=== PATIENT | male | born 1970 | race Caucasian/White ===

== ENCOUNTER 2017-07-27 23:52 | Inpatient (IN) | payer BC, OTHER ==
[~2017-07-27] VITALS: Ht 170.2 cm; Wt 190.6 kg
[~2017-07-27 23:52] MED LIST: CARI350T PO; HYDR-963 PO; PRED20TA PO
[2017-07-27] MEDS ORDERED: IV NORMAL SALINE 1,000ML 1,000 ML IV SCH (23:59)
--- NOTE | 2017-07-27 23:59 | ED.ADGEN ---
Past History Past Medical History: Hypertension, Pancreatitis Past Surgical History: Cholecystectomy, Other Alcohol Use: None Drug Use: None Adult General Chief Complaint Chief Complaint ".. I got some pain...".. " here in the Lt. flank and abdomen.. It started about 11... 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 pain. Pt. had a normal stool yesterday. Last ate today at approximately 1600 hrs. Pain has been constant since about 11 AM today. Acute onset. Pain has gotten much more severe tonight. Pain appears to be localized to left flank and radiates to left groin. History of dysuria, penile discharge, colitis, Crohn's, problems with defecation, pancreatitis, or past history of kidney stones. No family history kidney stones or colitis. No recent history of trauma or falls. Patient normally follows with Dr. Harrell. No recent travel. 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 Patient had previous lap band surgery and cholecystectomy. Review of Systems Review of Systems Constitutional: Denies fever or chills [] Eyes: Denies change in visual acuity, redness, or eye pain [] HENT: Denies nasal congestion or sore throat [] Respiratory: Denies cough or shortness of breath [] Cardiovascular: No additional information not addressed in HPI [] GI: History of abdominal pain, nausea, . Denies vomiting, bloody stools or diarrhea [] : Denies dysuria or hematuria [] Musculoskeletal: Left flank back pain. Integument: Denies rash or skin lesions [] Neurologic: Denies headache, focal weakness or sensory changes [] Endocrine: Denies polyuria or polydipsia [] All other systems were reviewed and found to be within normal limits, except as documented in this note. Family History Family History Noncontributory Current Medications Current Medications Current Medications Medications (Trade) Dose Ordered Sig/Sheldon Start Time Stop Time Status Last Admin Dose Admin Famotidine (Pepcid Vial) 20 mg 1X ONCE 07/28/17 00:00 07/28/17 00:32 DC 07/28/17 00:09 20 MG Info (Do NOT chart on this entry -- for MONITORING) 1 each PRN DAILY PRN 07/28/17 01:45 07/30/17 01:44 Iohexol (Omnipaque 240 Mg/ml) 50 ml 1X ONCE 07/28/17 01:45 07/28/17 01:46 DC 07/28/17 01:30 50 ML Iohexol (Omnipaque 300 Mg/ml) 75 ml 1X ONCE 07/28/17 01:45 07/28/17 01:46 DC 07/28/17 01:45 75 ML Ketorolac Tromethamine (Toradol) 30 mg 1X ONCE 07/28/17 00:00 07/28/17 00:32 DC 07/28/17 00:09 30 MG Lactated Ringer's 3,640 ml @ 3,640 mls/hr 1X ONCE 07/28/17 01:45 07/28/17 02:44 DC Morphine Sulfate (Morphine 4mg Syringe) 4 mg PRN QID PRN 07/28/17 01:45 Ondansetron HCl (Zofran) 4 mg QIDPRN PRN 07/28/17 01:45 07/28/17 02:09 4 MG Sodium Chloride 1,000 ml @ 1,000 mls/hr Q1H 07/27/17 23:59 07/28/17 00:58 DC 07/28/17 00:13 1,000 MLS/HR See nursing for home meds Allergies Allergies Allergies Coded Allergies Type Severity Reaction Last Updated Verified No Known Drug Allergies 07/28/17 No Physical Exam Physical Exam Constitutional: in acute distress, non-toxic appearance. [] HENT: Normocephalic, atraumatic, bilateral external ears normal, oropharynx moist, no oral exudates, nose normal. [] Eyes: PERRLA, EOMI, conjunctiva normal, no discharge. Glasses Neck: Normal range of motion, no tenderness, supple, no stridor. [] Cardiovascular:Heart rate regular rhythm, no murmur [] Lungs & Thorax: Bilateral breath sounds clear to auscultation [] Abdomen: Bowel sounds decreased , soft, no tenderness, no masses, no pulsatile masses. Left flank pain. Old surgery scars. Obese Skin: Warm, dry, no erythema, no rash. [] Back: No tenderness, no CVA tenderness. [] Extremities: No tenderness, no cyanosis, no clubbing, ROM intact, no edema. [] Neurologic: Alert and oriented X 3, normal motor function, normal sensory function, no focal deficits noted. [] Psychologic: Affect normal, judgement normal, mood normal. [] Current Patient Data Vital Signs Vital Signs Date Time Temp Pulse Resp B/P (MAP) Pulse Ox O2 Delivery O2 Flow Rate FiO2 07/28/17 01:20 98.2 76 163/68 (99) 96 Room Air 07/28/17 00:00 22 Lab Results Laboratory Tests Test 07/28/17 00:03 07/28/17 00:45 White Blood Count 13.5 x10^3/uL (4.0-11.0) H Red Blood Count 5.57 x10^6/uL (4.30-5.70) Hemoglobin 14.7 g/dL (13.0-17.5) Hematocrit 44.1 % (39.0-53.0) Mean Corpuscular Volume 79 fL (79-100) Mean Corpuscular Hemoglobin 27 pg (25-35) Mean Corpuscular Hemoglobin Concent 33 g/dL (31-37) Red Cell Distribution Width 13.9 % (11.5-14.5) Platelet Count 250 x10^3/uL (140-400) Neutrophils (%) (Auto) 75 % (31-73) H Lymphocytes (%) (Auto) 17 % (24-48) L Monocytes (%) (Auto) 7 % (0-9) Eosinophils (%) (Auto) 1 % (0-3) Basophils (%) (Auto) 1 % (0-3) Neutrophils # (Auto) 10.1 x10^3uL (1.8-7.7) H Lymphocytes # (Auto) 2.2 x10^3/uL (1.0-4.8) Monocytes # (Auto) 0.9 x10^3/uL (0.0-1.1) Eosinophils # (Auto) 0.2 x10^3/uL (0.0-0.7) Basophils # (Auto) 0.1 x10^3/uL (0.0-0.2) Prothrombin Time 10.2 SEC (9.4-11.4) Prothrombin Time INR 1.0 (0.9-1.1) PTT 24 SEC (23-33) Sodium Level 140 mmol/L (136-145) Potassium Level 4.0 mmol/L (3.5-5.1) Chloride Level 104 mmol/L (98-107) Carbon Dioxide Level 28 mmol/L (21-32) Anion Gap 8 (6-14) Blood Urea Nitrogen 11 mg/dL (8-26) Creatinine 1.0 mg/dL (0.7-1.3) Estimated GFR (Cockcroft-Gault) 80.1 Glucose Level 173 mg/dL (70-99) H Lactic Acid Level 1.6 mmol/L (0.4-2.0) Calcium Level 9.0 mg/dL (8.5-10.1) Total Bilirubin 0.3 mg/dL (0.2-1.0) Direct Bilirubin 0.1 mg/dL (0.0-0.2) Aspartate Amino Transferase (AST) 18 U/L (15-37) Alanine Aminotransferase (ALT) 28 U/L (16-63) Alkaline Phosphatase 86 U/L (46-116) Total Protein 8.1 g/dL (6.4-8.2) Albumin 3.7 g/dL (3.4-5.0) Amylase Level 363 U/L (25-115) H Lipase 3496 U/L (73-393) H Urine Collection Type Unknown Urine Color Yellow Urine Clarity Clear Urine pH 5.0 Urine Specific [place] >=1.030 Urine Protein Neg (NEG-TRACE) Urine Glucose (UA) Neg mg/dL (NEG) Urine Ketones (Stick) Neg mg/dL (NEG) Urine Blood Neg (NEG) Urine Nitrite Neg (NEG) Urine Bilirubin Neg (NEG) Urine Urobilinogen Dipstick 0.2 mg/dL (0.2 mg/dL) Urine Leukocyte Esterase Neg (NEG) Urine RBC 0 /HPF (0-2) Urine WBC Occ /HPF (0-4) Urine Squamous Epithelial Cells Few /LPF Urine Bacteria 0 /HPF (0-FEW) EKG EKG [] Radiology/Procedures Radiology/Procedures CT = umbilicus fat hernia, Findings of pancreatitis tail. No free fluid or air. No hydronephrosis. See formal report when available. Course & Med Decision Making Course & Med Decision Making Pertinent Labs and Imaging studies reviewed. (See chart for details). Currently no stable transfers- by Ambulance due to weather and road conditions. Discussed presentation, testing and tx. plan with Dr. Curiel. Will admit for further eval and tx. [] Final Impression Final Impression 1. Elevated Lipase & Amylase 2. Abdomen pain[] 3. Elevated amylase 4. Leukocytosis 5. Pancreatitis 6. DM 7. Hypertension Problems: Dragon Disclaimer Dragon Disclaimer This electronic medical record was generated, in whole or in part, using a voice recognition dictation system. CRYSTAL HYDE MD Jul 27, 2017 23:59
[2017-07-28] MEDS ORDERED: FAMOTIDINE 20 MG/2 ML VIAL IVP ONE
[2017-07-28] MEDS ORDERED: MORPHINE SULFATE 4 MG/ML DISP.SYRIN. IV ONE
[2017-07-28] MEDS ORDERED: KETOROLAC 30 MG/ML VIAL. IV ONE
[2017-07-28 00:22] LABS: BASO # 0.1 x10^3/uL (0.0-0.2); BASO % 1 % (0-3); EOS # 0.2 x10^3/uL (0.0-0.7); EOS % 1 % (0-3); HEMATOCRIT 44.1 % (39.0-53.0); HEMOGLOBIN 14.7 g/dL (13.0-17.5); LYMPH # 2.2 x10^3/uL (1.0-4.8); LYMPH % 17 % (24-48); MEAN CORPUSCULAR HEMOGLOBIN 27 pg (25-35); MEAN CORPUSCULAR HGB CONC 33 g/dL (31-37); MEAN CORPUSCULAR VOLUME 79 fL (79-100); MONO # 0.9 x10^3/uL (0.0-1.1); MONO % 7 % (0-9); NEUT # 10.1 x10^3uL (1.8-7.7); NEUT % 75 % (31-73); PLATELET COUNT 250 x10^3/uL (140-400); RED BLOOD COUNT 5.57 x10^6/uL (4.30-5.70); RED CELL DISTRIBUTION WIDTH 13.9 % (11.5-14.5); WHITE BLOOD COUNT 13.5 x10^3/uL (4.0-11.0)
[2017-07-28 00:32] LABS: ALBUMIN 3.7 g/dL (3.4-5.0); DIRECT BILIRUBIN 0.1 mg/dL (0.0-0.2); GFR 80.1; TOTAL BILIRUBIN 0.3 mg/dL (0.2-1.0); TOTAL PROTEIN 8.1 g/dL (6.4-8.2)
[2017-07-28] MEDS: MORPHINE SULFATE 4 MG/ML DISP.SYRIN. IV PRN ×7 (00:40→14:28)
--- NOTE | 2017-07-28 00:46 | RAD ---
EXAM: CT ABDOMEN/PELVIS WITHOUT CONTRAST. HISTORY: Left flank pain. TECHNIQUE: Computed tomography of the abdomen and pelvis was performed without intravenous contrast. COMPARISON: April 05, 2016. FINDINGS: Lung windows through the visualized portions of the bases reveal mild atelectasis. Bone windows reveal no suspicious lesions. There are inflammatory changes about the tail of the pancreas with a small amount of fluid in the left anterior pararenal space. This is consistent with acute pancreatitis. There is no drainable collection or clear underlying mass by noncontrast CT. A gastric band prosthesis is in expected position. The liver is at least mildly enlarged. Mild diffuse hepatic steatosis is suspected. The gallbladder is surgically absent. The adrenal glands are unremarkable. The spleen is not enlarged. The kidneys are unremarkable without contrast. There are no renal or ureteral calculi. Sigmoid diverticulosis is mild. The appendix is not inflamed. There is no obstruction or ileus. A small to moderate umbilical hernia contains only fat. IMPRESSION: 1. Findings consistent with moderate appearing acute pancreatitis along the tail. No drainable collection. 2. No nephroureterolithiasis. 3. Suspect mild diffuse hepatic steatosis. At least mild hepatomegaly. 4. Small to moderate fat-containing umbilical hernia. *One or more of the following individualized dose reduction techniques were utilized for this examination: 1. Automated exposure control. 2. Adjustment of the mA and/or kV according to patient size. 3. Use of iterative reconstruction technique. Electronically signed by: Iain Walker MD (07/28/2017 12:43 AM) [id number]
[2017-07-28 01:04] LABS: BACTERIA,URINE 0 /HPF (0-FEW); BILIRUBIN,URINE NEG (NEG); CLARITY,URINE CLEAR; COLOR,URINE YELLOW; GLUCOSE,URINE NEG (NEG); NITRITE,URINE NEG (NEG); RBC,URINE 0 /HPF (0-2); SQUAMOUS EPITHELIAL CELL,UR FEW /LPF; UROBILINOGEN,URINE 0.2 mg/dL (0.2 mg/dL); WBC,URINE OCC /HPF (0-4)
[2017-07-28] MEDS ORDERED: IOHEXOL 240 MG/ML 50ML VIAL. ONE (01:26)
[2017-07-28] MEDS ORDERED: IOHEXOL 300 MG/ML 75 ML VIAL. IV ONE (01:45)
[2017-07-28] MEDS ORDERED: ONDANSETRON PF 4 MG/2 ML VIAL. IV PRN (01:45)
[2017-07-28] MEDS ORDERED: CONTRAST GIVEN MC PRN (01:45)
[2017-07-28] MEDS ORDERED: MORPHINE SULFATE 4 MG/ML DISP.SYRIN. IV PRN (01:45)
[2017-07-28] MEDS ORDERED: RINGERS LACTATED IV ONE (01:45)
[2017-07-28] MEDS ORDERED: IOHEXOL 240 MG/ML 50ML VIAL. PO ONE (01:45)
[2017-07-28] MEDS ORDERED: ONDANSETRON PF 4 MG/2 ML VIAL. IV ONE ×2 (01:45)
--- NOTE | 2017-07-28 02:10 | RAD ---
EXAM: CT ABDOMEN/PELVIS WITH CONTRAST. HISTORY: Pancreatitis versus pancreatic mass. TECHNIQUE: Computed tomography of the abdomen and pelvis was performed after the intravenous administration of 75 mL Omnipaque 300. COMPARISON: Today's noncontrast study. FINDINGS: Lung windows through the visualized portions of the bases reveal mild atelectasis. Bone windows reveal no suspicious lesions. The pancreatic tail is enlarged but no discrete mass is appreciable on this can be seen in the setting of pancreatitis. There is surrounding inflammatory change with a small amount of fluid in the anterior pararenal space. There is no drainable collection. The splenic vein appears to remain patent. No aneurysm is appreciated. The pancreatic parenchyma demonstrates no clear regions of necrosis. Hypoattenuation of the hepatic parenchyma is consistent with diffuse hepatic steatosis. The liver is at least mildly enlarged. The gallbladder is surgically absent. There is a small cyst at the right renal lower pole. The adrenal glands and spleen are unremarkable. There are no pathologically enlarged lymph nodes. Sigmoid diverticulosis is mild. There is no obstruction. The appendix is not inflamed. A gastric band prosthesis is in expected position. A small to moderate umbilical hernia contains only fat. IMPRESSION: 1. Enlargement of the pancreatic tail can be seen in the setting of pancreatitis. No discrete mass is seen. A follow-up or MRCP with and without contrast after resolution of the acute process could further exclude a mass if there is persistent concern. 2. Hepatomegaly. Suspect mild diffuse hepatic steatosis. 3. Small to moderate fat-containing umbilical hernia. *One or more of the following individualized dose reduction techniques were utilized for this examination: 1. Automated exposure control. 2. Adjustment of the mA and/or kV according to patient size. 3. Use of iterative reconstruction technique. Electronically signed by: Iain Walker MD (07/28/2017 2:06 AM) [id number]
[2017-07-28] MEDS ORDERED: LISI1TAB5 PO (02:38)
[2017-07-28 02:56] VITALS: BP 133/75
[2017-07-28 05:31] VITALS: BP 129/83
[2017-07-28] MEDS: IV RINGERS SOLUTION,LACTATED 1,000 ML IV SCH ×3 (06:39→19:36)
[2017-07-28] MEDS: FAMOTIDINE 20 MG/2 ML VIAL IVP SCH ×2 (08:31→20:35)
[2017-07-28] MEDS: MAGNESIUM HYDROXIDE 2,400 MG/30 ML ORAL.SUSP. PO SCH (08:34)
[2017-07-28 09:36] VITALS: BP 141/71
[2017-07-28 14:17] VITALS: BP 141/79
[2017-07-28] MEDS ORDERED: PIPERACILLIN/TAZOBACTAM 3.375 GM in IV NORMAL SALINE 50ML 50 ML IV SCH (15:15)
[2017-07-28] MEDS ORDERED: ACETAMINOPHEN 650 MG SUPP.RECT. PR PRN (16:15)
[2017-07-28] MEDS: PIPERACILLIN/TAZO IV Push 3.375 GM VIAL. IVP SCH ×2 (16:57→22:48)
[2017-07-28 19:52] VITALS: BP 137/79
[2017-07-28] MEDS: HYDROmorphone PF 2 MG/ML VIAL IV PRN (20:35)
[2017-07-28 22:35] VITALS: BP 137/90
[2017-07-29] MEDS: HYDROmorphone PF 2 MG/ML VIAL IV PRN ×3 (03:17→18:43)
[2017-07-29 06:14] VITALS: BP 127/83
[2017-07-29] MEDS: PIPERACILLIN/TAZO IV Push 3.375 GM VIAL. IVP SCH ×3 (06:32→22:33)
[2017-07-29 07:02] LABS: HEMATOCRIT 40.5 % (39.0-53.0); HEMOGLOBIN 13.3 g/dL (13.0-17.5); RED BLOOD COUNT 5.03 x10^6/uL (4.30-5.70)
[2017-07-29 07:14] LABS: ALBUMIN/GLOBULIN RATIO 0.7 (1.0-1.7); CALCIUM 8.4 mg/dL (8.5-10.1); GFR 80.1; POTASSIUM 4.3 mmol/L (3.5-5.1); TOTAL BILIRUBIN 1.1 mg/dL (0.2-1.0); TOTAL PROTEIN 7.2 g/dL (6.4-8.2)
[2017-07-29] MEDS: FAMOTIDINE 20 MG/2 ML VIAL IVP SCH ×2 (08:23→20:56)
[2017-07-29] MEDS: MAGNESIUM HYDROXIDE 2,400 MG/30 ML ORAL.SUSP. PO SCH (09:00)
[2017-07-29] MEDS: IV RINGERS SOLUTION,LACTATED 1,000 ML IV SCH ×2 (10:59→20:57)
[2017-07-29 11:32] VITALS: BP 138/75
[2017-07-29 16:00] VITALS: BP 140/83
[2017-07-29 19:10] VITALS: BP 149/73
[2017-07-29] MEDS: LACTOBACILLUS RHAMNOSUS GG 1 CAPSULE. PO SCH (20:54)
[2017-07-30] MEDS: HYDROmorphone PF 2 MG/ML VIAL IV PRN ×5 (00:33→21:16)
[2017-07-30] MEDS: IV RINGERS SOLUTION,LACTATED 1,000 ML IV SCH (04:12)
[2017-07-30] MEDS: PIPERACILLIN/TAZO IV Push 3.375 GM VIAL. IVP SCH ×2 (06:00→16:16)
[2017-07-30 07:03] LABS: CALCIUM 8.7 mg/dL (8.5-10.1); CREATININE 0.9 mg/dL (0.7-1.3); GFR 90.4; POTASSIUM 3.9 mmol/L (3.5-5.1)
[2017-07-30 07:05] VITALS: BP 134/83
[2017-07-30] MEDS: FAMOTIDINE 20 MG/2 ML VIAL IVP SCH ×2 (08:27→21:16)
[2017-07-30] MEDS: MAGNESIUM HYDROXIDE 2,400 MG/30 ML ORAL.SUSP. PO SCH (08:30)
[2017-07-30] MEDS: LACTOBACILLUS RHAMNOSUS GG 1 CAPSULE. PO SCH ×2 (08:30→21:16)
[2017-07-30 10:34] VITALS: BP 146/88
--- NOTE | 2017-07-30 13:47 | RAD ---
Acute abdomen series with chest, 07/28/2017: History: Abdominal pain This study is just now being presented for review on a delayed basis. A gastric banding type device is present. Surgical clips are evident in the right upper quadrant. The abdominal gas pattern is unremarkable. No free air seen in the abdomen. There is no evidence of organomegaly. The heart size and pulmonary vascularity are normal. The lungs are clear. There is no evidence of pleural fluid. There are mild scattered spurs in the spine. IMPRESSION: 1. A gastric banding type device is in place. 2. No acute abdominal abnormality is detected.
[2017-07-30 14:40] VITALS: BP 158/80
--- NOTE | 2017-07-30 16:01 | RAD ---
CTA chest and CT abdomen and pelvis with contrast 07/30/2017 Clinical indication: Shortness of air and elevated d-dimer. Comparison: CT abdomen and pelvis with contrast 07/28/2017, without contrast CT abdomen and pelvis 07/28/2017, 04/05/2016, CT chest 07/20/2010. Technique: Multiple CTA images chest, abdomen and pelvis were obtained following the intravenous administration of 75 mL Omnipaque 300. MIPS were obtained of the chest. PQRS Compliance Statement: One or more of the following individualized dose reduction techniques were utilized for this examination: 1. Automated exposure control 2. Adjustment of the mA and/or kV according to patient size 3. Use of iterative reconstruction technique CTA chest: There is suboptimal opacification of the major segmental and subsegmental pulmonary arteries. No main or central pulmonary arterial filling defect. Heart size is normal without significant pericardial effusion. The thoracic aorta is normal in caliber. No axillary, mediastinal or obvious hilar lymphadenopathy. The central airways are patent. There is mild subsegmental atelectasis in the right lower lobe. There is trace left pleural effusion and subjacent atelectasis. No pneumothorax. Abdomen and pelvis: Examination is significant delay limited due to contrast timing and body habitus. There is diffuse hepatic steatosis. Spleen, adrenal glands are grossly unremarkable. Prior cholecystectomy. There is a laparoscopic Coptic gastric banding device in similar position. There is no significant change in peripancreatic stranding and edema most prominent adjacent to the pancreatic tail. There is focal enlargement as seen on series 5/image 36. There is thickening of the left anterior pararenal fascia, likely reactive from the pancreatic inflammation. No discrete loculated peripancreatic fluid collection. Note that patency of the splenic vein and splenic artery arteries cannot be identified on the limited exam. Abdominal aorta is normal in caliber. Small and large bowel loops are normal in caliber without obstruction. No pneumoperitoneum. Visualized portions of the urinary bladder, prostate and seminal vesicles are grossly unremarkable. There is a small fat-containing umbilical hernia. Impression: CTA chest: 1. Nondiagnostic examination of the major segmental and subsegmental pulmonary arterial branches, due to body habitus and contrast timing. 2. No main pulmonary arterial filling defect. 3. Development of a small left pleural effusion and bilateral lower lobe subsegmental atelectasis. Abdomen and pelvis: 1. No significant change in peripancreatic stranding and edema which may represent acute interstitial edematous pancreatitis. 2. Stable focal enlargement of the pancreatic tail. Consideration for MRCP without with contrast after resolution of acute process to exclude underlying pancreatic mass. 3. No discrete peripancreatic loculated fluid collection. 4. Hepatic steatosis.
[2017-07-30] MEDS: VANCOMYCIN PER PHARMACY MC PRN (17:04)
[2017-07-30] MEDS: FLUCONAZOLE 100MG/50ML PREMIX 50 ML IV SCH (17:27)
[2017-07-30] MEDS ORDERED: VANCOMYCIN 2 GM in IV NORMAL SALINE 500ML 500 ML IV ONE (18:00)
[2017-07-30 19:34] VITALS: BP 164/75
[2017-07-30] MEDS: MEROPENEM IV Push 1 GM VIAL. IVP SCH (21:17)
--- NOTE | 2017-07-30 21:36 | RAD ---
Exam: AP portable chest History: PICC line placement. Comparison: None. Findings: The heart and mediastinal structures are within normal limits for size. Lungs are without infiltrate. No pleural effusion or pneumothorax is identified. There is a right-sided PICC line with tip thought to project at the superior vena cava. Impression: 1. No acute cardiopulmonary process. 2. Right-sided PICC line tip projects at the superior vena cava. Electronically signed by: Lenny Escobedo MD (07/30/2017 9:33 PM) [facility]
[2017-07-30] MEDS ORDERED: MEROPENEM 1 GM in IV NORMAL SALINE 100ML 100 ML IV SCH (22:00)
[2017-07-30 23:07] VITALS: BP 165/86
[2017-07-31] MEDS: HYDROmorphone PF 2 MG/ML VIAL IV PRN ×4 (02:49→21:11)
--- NOTE | 2017-07-31 04:54 | PN ---
DATE: 07/30/2017 SUBJECTIVE: The patient is a 46-year-old male patient who was admitted with pancreatitis. He continued to complain of abdominal pain, particularly when he stands or walks, but he is pain free when he is sitting or lying in his bed. He did spike temperature again last night up to 102 Fahrenheit and in fact his white cell count went up from 13.5-22,000 despite being on Zosyn. His D-dimer was high and that was done because of shortness of breath and did a CT scan of the chest, abdomen and pelvis. The CT angio of the chest showed that there is suboptimal opacification of the major segmental and subsegmental pulmonary arteries, no main or central pulmonary artery filling defect. The heart size is normal without significant pericardial effusion. The thoracic aorta is normal in caliber. No axillary, mediastinal or obvious hilar lymphadenopathy. The central airways are patent. There is mild subsegmental atelectasis in the right lower lobe, there is left pleural effusion with subjacent atelectasis, no pneumothorax. CT scan of the abdomen showed that he has no significant change, peripancreatic stranding or edema, which may represent acute interstitial edematous pancreatitis. He has stable focal enlargement of the pancreatic tail, consideration for MRCP without contrast after resolution of acute process to exclude underlying pancreatic mass. There is no discrete peripancreatic loculated fluid collection. I did speak with Dr. Starr who recommended to discontinue Zosyn and start him on meropenem, vancomycin, fluconazole and to reculture him again. We will start him also on a clear liquid diet. PHYSICAL EXAMINATION: GENERAL: When I examined him this afternoon, he was sitting comfortably and he is on the edge of the bed, in no apparent respiratory distress, slightly pale, but no jaundice, cyanosis or thyromegaly. No jugular venous distension. No limb edema. VITAL SIGNS: His heart rate was 107, blood pressure 158/80, temperature was 98.9, respiratory rate was 20 and oxygen saturation was 93%. He is on 3 liters of oxygen. HEAD, EYES, EARS, NOSE AND THROAT: Showed normocephalic, atraumatic. NECK: Supple. HEART: Showed normal first and second heart sounds with no gallop, rub or murmur. CHEST: Clear to auscultation. No crepitation or rhonchi. ABDOMEN: Distended, soft, nontender. NEUROLOGIC: He is awake, alert, responding appropriately. Cranial nerves intact. He moves extremities without difficulty. His intake over the last 24 hours was 2818, no output was recorded. LABORATORY DATA: This morning showed a white cell count of 22,000, hemoglobin 13, hematocrit 40, MCV 81 and platelet count 231,000. His serum sodium was 141, potassium 3.9, chloride 105, bicarbonate 29, anion gap of 7, BUN 14, creatinine 0.9, estimated GFR was 90 mL per minute. His glucose 146, calcium was 8.7 and his D-dimer was 3.77. Urinalysis was unremarkable. His urine and blood cultures were all negative. ASSESSMENT: Acute pancreatitis, resolving. He has history of hypertension, morbid obesity, obstructive sleep apnea, febrile illness with leukocytosis. PLAN: We will re-culture him. We will start him on a clear liquid diet as tolerated. I will switch him to meropenem, vancomycin and fluconazole and discontinue Zosyn. We will repeat all his lab works tomorrow and decide the further management accordingly. LEXX VU MD DR: TEE/jamaica JOB#: [id number] / [id number]
[2017-07-31 04:59] VITALS: BP 163/81
[2017-07-31] MEDS: MEROPENEM IV Push 1 GM VIAL. IVP SCH ×3 (05:01→21:12)
[2017-07-31] MEDS: VANCOMYCIN 2 GM in IV NORMAL SALINE 500ML 500 ML IV SCH ×2 (05:02→18:20)
[2017-07-31 05:27] LABS: BASO # 0.1 x10^3/uL (0.0-0.2); BASO % 1 % (0-3); EOS # 0.1 x10^3/uL (0.0-0.7); EOS % 0 % (0-3); HEMATOCRIT 37.7 % (39.0-53.0); HEMOGLOBIN 12.3 g/dL (13.0-17.5); LYMPH # 1.5 x10^3/uL (1.0-4.8); LYMPH % 8 % (24-48); MEAN CORPUSCULAR HEMOGLOBIN 26 pg (25-35); MEAN CORPUSCULAR HGB CONC 33 g/dL (31-37); MEAN CORPUSCULAR VOLUME 80 fL (79-100); MONO # 1.6 x10^3/uL (0.0-1.1); MONO % 8 % (0-9); NEUT # 16.2 x10^3uL (1.8-7.7); NEUT % 83 % (31-73); PLATELET COUNT 211 x10^3/uL (140-400); RED CELL DISTRIBUTION WIDTH 13.7 % (11.5-14.5); WHITE BLOOD COUNT 19.4 x10^3/uL (4.0-11.0)
[2017-07-31 05:43] LABS: % BANDS 5 % (0-9); % LYMPHS 3 % (24-48); % MONOS 4 % (0-10); % SEGS 88 % (35-66); PLT ESTIMATE ADEQUATE (ADEQUATE)
[2017-07-31 05:44] LABS: ALBUMIN 2.4 g/dL (3.4-5.0); ALBUMIN/GLOBULIN RATIO 0.6 (1.0-1.7); CALCIUM 8.5 mg/dL (8.5-10.1); CREATININE 0.8 mg/dL (0.7-1.3); GFR 103.6; POTASSIUM 3.5 mmol/L (3.5-5.1); TOTAL BILIRUBIN 0.8 mg/dL (0.2-1.0); TOTAL PROTEIN 6.7 g/dL (6.4-8.2)
[2017-07-31] MEDS: MAGNESIUM HYDROXIDE 2,400 MG/30 ML ORAL.SUSP. PO SCH (09:21)
[2017-07-31] MEDS: LACTOBACILLUS RHAMNOSUS GG 1 CAPSULE. PO SCH ×2 (09:21→21:11)
[2017-07-31] MEDS: FAMOTIDINE 20 MG/2 ML VIAL IVP SCH ×2 (09:22→21:11)
[2017-07-31 10:56] VITALS: BP 163/84
[2017-07-31 14:54] VITALS: BP 162/82
[2017-07-31] MEDS: IV RINGERS SOLUTION,LACTATED 1,000 ML IV SCH (16:52)
[2017-07-31] MEDS: FLUCONAZOLE 100MG/50ML PREMIX 50 ML IV SCH (17:14)
[2017-07-31 19:23] VITALS: BP 167/78
[2017-07-31 23:22] VITALS: BP 175/77
--- NOTE | 2017-08-01 00:57 | PN ---
DATE: SUBJECTIVE: The patient is resting, slightly propped up in bed, in no apparent respiratory distress. He is awake, alert. On questioning him, he denied any abdominal pain while lying or sitting. He does have some discomfort when he walks, but much less than before. Denied any nausea, vomiting, no diarrhea or constipation. Denied any chills, rigors or fever. He is tolerating his liquid diet without any problem. OBJECTIVE: GENERAL: When I examined him, he looked well and was clearly in no apparent respiratory distress, pale, no jaundice, cyanosis, or thyromegaly. No jugular venous distension. No limb edema. VITAL SIGNS: Her heart rate was 105, blood pressure was 162/82, temperature was 98.4, respiratory rate was 20, and oxygen saturation was 96% on room air. HEAD, EYES, EARS, NOSE AND THROAT: Showed normocephalic, atraumatic. NECK: Supple. HEART: Showed normal first and second heart sounds. No gallop, rub or murmur. CHEST: Clear to auscultation. No crepitation or rhonchi. ABDOMEN: Distended, soft, and nontender. No guarding or rigidity. No organomegaly. Hernial orifice intact. Bowel sounds normal. NEUROLOGIC: He was awake, alert, responding appropriately. Cranial nerves intact. He moves extremities without difficulty. He ambulates without assistance or assistive devices. His intake over the last 24 hours was 2900, no output was recorded. LABORATORY DATA: As of this morning, his white cell count is slightly down to 19,400, hemoglobin was 12, hematocrit 37, MCV 80, and platelet count 211,000. His chemistry showed a serum sodium 135, potassium 3.5, chloride 101, bicarbonate 30, anion gap of 4, BUN 12, creatinine 0.8, estimated GFR was 103 mL per minute, his glucose 124, and calcium was 8.5. Total bilirubin, AST, ALT, alkaline phosphatase were normal. Total protein was 6.7, albumin 2.4. His serum lipase is down to 167. ASSESSMENT: 1. Acute pancreatitis, resolving. 2. Leukocytosis with fever for which, we did burgess culture him. So far, all his cultures are negative. He continues to be on meropenem, vancomycin, and fluconazole. He today is afebrile, hemodynamically stable. His white cell count is trending down. 3. Hypertension. 4. Morbid obesity. 5. Obstructive sleep apnea. PLAN: My plan is to continue with the current plan of management. If blood cultures remain negative tomorrow, we will discontinue the vancomycin and will be able to discharge him on oral antibiotic and fluconazole. LEXX VU MD DR: TEE/jamaica JOB#: [id number] / [id number]
[2017-08-01] MEDS: IV RINGERS SOLUTION,LACTATED 1,000 ML IV SCH ×3 (02:45→21:03)
[2017-08-01] MEDS: HYDROmorphone PF 2 MG/ML VIAL IV PRN ×4 (03:30→23:55)
[2017-08-01] MEDS: MEROPENEM IV Push 1 GM VIAL. IVP SCH ×3 (05:23→21:03)
[2017-08-01 05:25] LABS: BASO # 0.1 x10^3/uL (0.0-0.2); BASO % 1 % (0-3); EOS # 0.2 x10^3/uL (0.0-0.7); EOS % 1 % (0-3); HEMATOCRIT 37.4 % (39.0-53.0); HEMOGLOBIN 12.3 g/dL (13.0-17.5); LYMPH # 1.6 x10^3/uL (1.0-4.8); LYMPH % 9 % (24-48); MEAN CORPUSCULAR HEMOGLOBIN 26 pg (25-35); MEAN CORPUSCULAR HGB CONC 33 g/dL (31-37); MEAN CORPUSCULAR VOLUME 80 fL (79-100); MONO # 1.3 x10^3/uL (0.0-1.1); MONO % 8 % (0-9); NEUT # 14.1 x10^3uL (1.8-7.7); NEUT % 82 % (31-73); PLATELET COUNT 210 x10^3/uL (140-400); RED CELL DISTRIBUTION WIDTH 13.7 % (11.5-14.5); WHITE BLOOD COUNT 17.4 x10^3/uL (4.0-11.0)
[2017-08-01 05:31] LABS: CALCIUM 8.3 mg/dL (8.5-10.1); CREATININE 0.8 mg/dL (0.7-1.3); GFR 103.6; POTASSIUM 3.3 mmol/L (3.5-5.1)
[2017-08-01 05:32] VITALS: BP 142/87
[2017-08-01 05:36] LABS: VANC TR 7.7 mcg/mL (10.0-20.0)
[2017-08-01] MEDS: VANCOMYCIN 2 GM in IV NORMAL SALINE 500ML 500 ML IV SCH ×3 (05:45→21:03)
[2017-08-01] MEDS: LACTOBACILLUS RHAMNOSUS GG 1 CAPSULE. PO SCH ×2 (07:43→21:03)
[2017-08-01] MEDS: FAMOTIDINE 20 MG/2 ML VIAL IVP SCH ×2 (07:44→21:02)
[2017-08-01] MEDS: VANCOMYCIN PER PHARMACY MC PRN (08:31)
[2017-08-01] MEDS: MAGNESIUM HYDROXIDE 2,400 MG/30 ML ORAL.SUSP. PO SCH (08:36)
[2017-08-01 14:37] VITALS: BP 180/80
[2017-08-01] MEDS: FLUCONAZOLE 100MG/50ML PREMIX 50 ML IV SCH (18:40)
[2017-08-01 19:07] VITALS: BP 162/82
[2017-08-02] MEDS: VANCOMYCIN 2 GM in IV NORMAL SALINE 500ML 500 ML IV SCH (04:56)
[2017-08-02] MEDS: MEROPENEM IV Push 1 GM VIAL. IVP SCH (04:56)
[2017-08-02 05:41] VITALS: BP 160/90
[2017-08-02 06:31] LABS: HEMATOCRIT 37.9 % (39.0-53.0); HEMOGLOBIN 12.3 g/dL (13.0-17.5); RED BLOOD COUNT 4.7 x10^6/uL (4.30-5.70); RED CELL DISTRIBUTION WIDTH 13.7 % (11.5-14.5); WHITE BLOOD COUNT 16.5 x10^3/uL (4.0-11.0)
[2017-08-02 06:32] LABS: ALBUMIN 2.2 g/dL (3.4-5.0); ALBUMIN/GLOBULIN RATIO 0.5 (1.0-1.7); CALCIUM 8.2 mg/dL (8.5-10.1); CREATININE 0.7 mg/dL (0.7-1.3); GFR 120.9; POTASSIUM 3.2 mmol/L (3.5-5.1); TOTAL BILIRUBIN 0.8 mg/dL (0.2-1.0); TOTAL PROTEIN 6.3 g/dL (6.4-8.2)
[2017-08-02] MEDS: HYDROmorphone PF 2 MG/ML VIAL IV PRN (06:42)
[2017-08-02 06:48] VITALS: BP 177/90
--- NOTE | 2017-08-02 15:45 | PN ---
DATE: 08/01/2017 SUBJECTIVE: The patient is a 46-year-old male patient who was admitted with abdominal pain and was diagnosed with acute pancreatitis. He also spiked his temperature and developed leukocytosis for which we pancultured him. We will start him on meropenem, vancomycin, fluconazole, and I discontinued his Zosyn as per Dr. Starr's advice. His serum lipase has steadily improved from 3496 down to 213 and we did start him on a clear liquid diet and since then, the patient stated that his pain returned back mostly in the left upper quadrant and through and through to the back. He has been afebrile. His white cell count was trending down, although it is still high and therefore, we will continue with current plan of management on IV fluid, IV antibiotic, pain medication and antiemetic and per his request, we will transfer him tomorrow to [facility] to consult the screen printing stencil preparer as well as the Infectious Disease and perhaps the surgical team if deemed necessity. PHYSICAL EXAMINATION: GENERAL: When I saw him this afternoon, he looked well and was clearly in no apparent respiratory distress, pale, but no jaundice, cyanosis or thyromegaly. No jugular venous distension. No limb edema. VITAL SIGNS: His heart rate was 88, blood pressure was 180/80, temperature was 98.8, respiratory rate was 20, and oxygen saturation was 96% on 2 liters of oxygen. HEAD, EYES, EARS, NOSE AND THROAT: Showed normocephalic, atraumatic. NECK: Supple. HEART: Showed normal first and second heart sounds with no gallop, rub or murmur. CHEST: Clear to auscultation. No crepitation or rhonchi. ABDOMEN: Distended, soft with tenderness mostly in the left upper quadrant. No guarding or rigidity. No organomegaly. Hernial orifices intact. Bowel sounds normal. NEUROLOGIC: He is awake, alert, responding appropriately. All cranial nerves intact. EXTREMITIES: He moves extremities without difficulty. He ambulates without assistance or assistive devices. His intake over the last 24 hours was 3900, no output was recorded. LABORATORY DATA: As of this morning showed a white cell count 17,400, hemoglobin 12, hematocrit 37, MCV 80 and platelet count of 210,000. His serum sodium was 143, potassium 3.3, chloride 105, bicarbonate 30, anion gap of 8, BUN 10, creatinine 0.8, estimated GFR was 104 mL per minute. Glucose 126, calcium was 8.3. Serum lipase this morning was 213. PLAN: To continue with IV antibiotic. Continue with pain management and DVT prophylaxis in the form of SCDs and GI prophylaxis. I will repeat all his lab work tomorrow. We will transfer him once a bed becomes available to [facility] to consult the Gastroenterology team, Surgical team as well as Infectious Disease team. LEXX VU MD DR: TEE/jamaica JOB#: [id number] / [id number]
== END 2017-08-02 07:31 | disposition short-term general hospital (02) | DRG 439 ==
LOC: ER 23:52 → 1 SOUTH 07-28 01:45
PROVIDERS: ADMIT Family Medicine; ATTEND Family Medicine
DX: K85.90 Acute pancreatitis without necrosis or infection, unspecified (principal); K50.90 Crohn's disease, unspecified, without complications; E66.01 Morbid (severe) obesity due to excess calories; Z68.44 Body mass index [BMI] 60.0-69.9, adult; E11.9 Type 2 diabetes mellitus without complications; G47.33 Obstructive sleep apnea (adult) (pediatric); I10 Essential (primary) hypertension; Z87.442 Personal history of urinary calculi; Z98.84 Bariatric surgery status; Z90.49 Acquired absence of other specified parts of digestive tract; R94.8 Abnormal results of function studies of other organs and systems
CPT/HCPCS: 36415; 36569; 71045; 71275; 74022; 74176; 74177; 80048; 80053; 80061; 80076; 80202; 81001; 82150; 82947; 83605; 83690; 85007; 85025; 85027; 85379; 85610; 85730; 87040; 87086; 87186; 96361; 96374; 96375; 96376; J1170; J1450; J1885; J2185; J2270; J2405; J2543; J3370; J7040; J7120; Q9966; Q9967; S0028; 99285-25; J7030

== ENCOUNTER 2017-11-29 12:53 | Emergency (ER) | payer BC, OTHER ==
[~2017-11-29] VITALS: Ht 170.2 cm; Wt 191.4 kg
[~2017-11-29 12:53] MED LIST changes: +LISI1TAB5 PO
[2017-11-29 13:12] VITALS: BP 209/128
[2017-11-29] MEDS ORDERED: cefTRIAXone IV Push 1 GM VIAL. IVP ONE (13:30)
[2017-11-29] MEDS ORDERED: KETOROLAC 30 MG/ML VIAL. IV ONE (13:30)
[2017-11-29] MEDS ORDERED: METOCLOPRAMIDE HCL 10 MG/2 ML VIAL. IV ONE (13:30)
[2017-11-29] MEDS ORDERED: diphenhydrAMINE 50 MG/ML VIAL IVP ONE (13:30)
[2017-11-29] MEDS ORDERED: MORPHINE SULFATE 10 MG/ML SYRINGE. ONE (13:44)
[2017-11-29] MEDS ORDERED: MORPHINE SULFATE 10 MG/ML SYRINGE. SQ ONE (13:45)
[2017-11-29] MEDS ORDERED: HYDR-971 PO (14:44)
[2017-11-29] MEDS ORDERED: PENI500T PO (14:44)
--- NOTE | 2017-11-29 14:49 | PHYS DOC ---
Past History Past Medical History: Hypertension, Migraines, Pancreatitis Past Surgical History: Cholecystectomy, Other Smoking: Non-smoker Alcohol Use: None Drug Use: None Adult General Chief Complaint Chief Complaint: HEADACHE HPI HPI 47-year-old male patient with history of migraine headache complaining of sudden onset of frontal headache as a constant throbbing pain with nausea and photophobia started about 1.5 hour ago. Patient states the pain was more severe his usual pain and he took sublingual Zofran. Patient states he had right lower jaw and dental abscess a take his headache. Patient denies fever and chills, neck rigidity, focal neuro deficit, chest pain and shortness of breath. The patient has history of hypertension and states he was not able to take his blood pressure medication of pain and nausea. Review of Systems Review of Systems Constitutional: Denies fever or chills [] Eyes: Denies change in visual acuity, redness, or eye pain [] HENT: Denies nasal congestion or sore throat [] Respiratory: Denies cough or shortness of breath [] Cardiovascular: No additional information not addressed in HPI [] GI: Reports nausea, denies abdominal pain, vomiting, bloody stools or diarrhea [] : Denies dysuria or hematuria [] Musculoskeletal: Denies back pain or joint pain [] Integument: Denies rash or skin lesions [] Neurologic: Reports headache, denies focal weakness or sensory changes [] Endocrine: Denies polyuria or polydipsia [] All other systems were reviewed and found to be within normal limits, except as documented in this note. Current Medications Current Medications Current Medications Medications (Trade) Dose Ordered Sig/Sheldon Start Time Stop Time Status Last Admin Dose Admin Ceftriaxone Sodium 1 gm/ Sodium Chloride 50 ml @ 100 mls/hr 1X ONCE 11/29/17 13:15 11/29/17 13:28 DC Ceftriaxone Sodium (Rocephin) 1 gm 1X ONCE 11/29/17 13:30 11/29/17 13:31 DC Diphenhydramine HCl (Benadryl) 50 mg 1X ONCE 11/29/17 13:30 11/29/17 13:31 DC Ketorolac Tromethamine (Toradol) 30 mg 1X ONCE 11/29/17 13:30 11/29/17 13:31 DC Metoclopramide HCl (Reglan Vial) 10 mg 1X ONCE 11/29/17 13:30 11/29/17 13:31 DC Morphine Sulfate (Morphine 10mg Syringe) 10 mg 1X ONCE 11/29/17 13:45 11/29/17 13:46 UNV 11/29/17 13:45 10 MG Allergies Allergies Allergies Coded Allergies Type Severity Reaction Last Updated Verified No Known Drug Allergies 07/28/17 No Physical Exam Physical Exam Constitutional: Well developed, well nourished, moderate distress, non-toxic appearance, morbidly obese, BMI 66. [] HENT: Normocephalic, atraumatic, bilateral external ears normal, oropharynx moist, no oral exudates, nose normal right lower molar #1 abscess and tenderness. [] Eyes: PERRLA, EOMI, conjunctiva normal, no discharge. [] Neck: Normal range of motion, no tenderness, supple, no stridor. [] Cardiovascular:Heart rate regular rhythm, no murmur [] Lungs & Thorax: Bilateral breath sounds clear to auscultation [] Abdomen: Bowel sounds normal, soft, no tenderness, no masses, no pulsatile masses. [] Skin: Warm, dry, no erythema, no rash. [] Back: No tenderness, no CVA tenderness. [] Extremities: No tenderness, no cyanosis, no clubbing, ROM intact, no edema. [] Neurologic: Alert and oriented X 3, normal motor function, normal sensory function, no focal deficits noted. [] Psychologic: Affect normal, judgement normal, mood normal. [] Current Patient Data Vital Signs Vital Signs Date Time Temp Pulse Resp B/P (MAP) Pulse Ox O2 Delivery O2 Flow Rate FiO2 11/29/17 14:10 66 96 11/29/17 13:45 16 Room Air EKG EKG [] Radiology/Procedures Radiology/Procedures [] Course & Med Decision Making Course & Med Decision Making Evaluation of patient in ER showed 47-year-old male patient with complaining of migraine headache after dental abscess. Patient had dental abscess blood pressure of more than 200 with arrival to ER . Patient had heart IV access and morphine 10 mg subcutaneous was given and placement of his pain and blood pressure. Prescription for Pen-Vee K and was given and patient instructed to take his blood pressure medication and follow up with his dentist. Dragon Disclaimer Dragon Disclaimer This electronic medical record was generated, in whole or in part, using a voice recognition dictation system. Departure Departure: Impression: Primary Impression: Migraine headache Additional Impressions: Dental abscess Hypertensive urgency Morbid obesity Disposition: 01 HOME, SELF-CARE (At 1441) Condition: IMPROVED Referrals: HERNANDEZ JOHNSON MD (PCP) Patient Instructions: Dental Abscess, Migraine Headache Additional Instructions: Drink plenty of liquids Follow-up with your primary care physician in 3-5 days Return to ER if not getting better Follow up with your dentist in 5-7 days Scripts Hydrocodone Bit/Acetaminophen (NORCO 5-325 TABLET) 1 Each Tablet 1 TAB PO PRN Q6HRS PRN for PAIN, #14 TAB 0 Refills Prov: TYESHA BECK MD 11/29/17 Penicillin V Potassium (PENICILLIN V POTASSIUM) 500 Mg Tablet 1 TAB PO QID, #40 TAB Prov: TYESHA BECK MD 11/29/17 Problem Qualifiers TYESHA BECK MD November 29, 2017 14:49
== END 2017-11-29 14:56 | disposition home or self-care (01) ==
LOC: ER 12:53
DX: G43.909 Migraine, unspecified, not intractable, without status migrainosus (principal); K04.7 Periapical abscess without sinus; I10 Essential (primary) hypertension; E66.01 Morbid (severe) obesity due to excess calories; Z68.44 Body mass index [BMI] 60.0-69.9, adult
CPT/HCPCS: 96372; 99283; J2270

== ENCOUNTER 2019-02-12 13:34 | Emergency (ER) | payer BC, OTHER ==
[~2019-02-12] VITALS: Ht 170.2 cm; Wt 193.2 kg
[~2019-02-12 13:34] MED LIST changes: +HYDR-3136 PO; +HYDR-3165 PO; -HYDR-963 PO; +PENI500T PO
[2019-02-12 13:46] VITALS: BP 150/100
[2019-02-12] MEDS ORDERED: MECL25TA3 PO (14:01)
--- NOTE | 2019-02-12 14:01 | PHYS DOC ---
Past History Past Medical History: Hypertension, Migraines, Pancreatitis Past Surgical History: Cholecystectomy, Other Smoking: Non-smoker Alcohol Use: None Drug Use: None Adult General Chief Complaint Chief Complaint: DIZZY/LIGHT HEADED [facility] HPI Patient is a 48-year-old male who presents with sudden onset of acute dizziness. He states he was sitting at his desk looking at the computer lifted his head up and felt like the room was spinning. He got up turned around and symptoms got worse to the point he had to sit down. He denies a headache or lateralizing neurologic weakness. He states he felt a little nauseous with the dizziness. He also states that in the last 24 hours he's developed a dry cough that he states is come out of nowhere. He states he's felt warm but hasn't been running a fever. He states he is not coughing anything up.[] Review of Systems Review of Systems Constitutional: Denies fever or chills [] Eyes: Denies change in visual acuity, redness, or eye pain [] HENT: Denies nasal congestion or sore throat [] Respiratory: Reports dry cough[] Cardiovascular: No additional information not addressed in HPI [] GI: Some nausea[] : Denies dysuria or hematuria [] Musculoskeletal: Denies back pain or joint pain [] Integument: Denies rash or skin lesions [] Neurologic: Reports dizziness[] Endocrine: Denies polyuria or polydipsia [] All other systems were reviewed and found to be within normal limits, except as documented in this note. Allergies Allergies Allergies Coded Allergies Type Severity Reaction Last Updated Verified No Known Drug Allergies 07/28/17 No Physical Exam Physical Exam Constitutional: Well developed, well nourished, no acute distress, non-toxic appearance. [] HENT: Normocephalic, atraumatic, bilateral external ears normal, oropharynx moist, no oral exudates, nose normal. [] Eyes: PERRLA, EOMI, conjunctiva normal, no discharge. [] Neck: Normal range of motion, no tenderness, supple, no stridor. [] Cardiovascular:Heart rate regular rhythm, no murmur [] Lungs & Thorax: Bilateral breath sounds clear to auscultation [] Abdomen: Bowel sounds normal, soft, no tenderness, no masses, no pulsatile masses. [] Skin: Warm, dry, no erythema, no rash. [] Back: No tenderness, no CVA tenderness. [] Extremities: No tenderness, no cyanosis, no clubbing, ROM intact, no edema. [] Neurologic: Alert and oriented X 3, normal motor function, normal sensory function, no focal deficits noted. [] Psychologic: Affect normal, judgement normal, mood normal. [] Current Patient Data Vital Signs Vital Signs Date Time Temp Pulse Resp B/P (MAP) Pulse Ox O2 Delivery O2 Flow Rate FiO2 02/12/19 13:46 98.0 86 18 97 Room Air EKG EKG [] Radiology/Procedures Radiology/Procedures [] Course & Med Decision Making Course & Med Decision Making Pertinent Labs and Imaging studies reviewed. (See chart for details) [] Dragon Disclaimer Dragon Disclaimer This electronic medical record was generated, in whole or in part, using a voice recognition dictation system. Departure Departure: Impression: Primary Impression: Vertigo Additional Impression: Cough Disposition: 01 HOME, SELF-CARE Condition: STABLE Referrals: HERNANDEZ JOHNSON MD (PCP) Patient Instructions: Benign Positional Vertigo, Cough, Adult, Upper Respiratory Infection, Adult, Vertigo Additional Instructions: Take medication as directed. Return to the emergency department with any new or concerning symptoms Scripts Meclizine Hcl (MECLIZINE HCL) 25 Mg Tablet 1 TAB PO PRN TID for vertigo, #30 TAB Prov: JOSÉ MANUEL MCDONALD DO 02/12/19 Problem Qualifiers JOSÉ MANUEL MCDONALD DO Feb 12, 2019 14:01
[2019-02-12] MEDS ORDERED: MECLIZINE 12.5 MG TABLET. PO ONE (14:15)
[2019-02-12] MEDS ORDERED: diazePAM 5 MG TABLET PO ONE (14:15)
[2019-02-12] MEDS ORDERED: ONDANSETRON ODT 4 MG TAB.RAPDIS ONE (14:15)
== END 2019-02-12 14:24 | disposition home or self-care (01) ==
LOC: ER 13:34
DX: R42 Dizziness and giddiness (principal); R53.1 Weakness; R05 Cough; I10 Essential (primary) hypertension; G43.909 Migraine, unspecified, not intractable, without status migrainosus
CPT/HCPCS: 99283; J8597

== ENCOUNTER 2019-06-17 18:30 | Emergency (ER) | payer BC, OTHER ==
[~2019-06-17 18:30] MED LIST changes: +LISI1TAB19 PO; -LISI1TAB5 PO; +MECL-75 PO
[2019-06-17] MEDS ORDERED: IV NORMAL SALINE 1,000ML 1,000 ML IV SCH (18:53)
--- NOTE | 2019-06-17 18:56 | PHYS DOC ---
Past History Past Medical History: Hypertension, Migraines, Pancreatitis Past Surgical History: Cholecystectomy, Other Additional Past Surgical Histo: lap band Smoking: Non-smoker Alcohol Use: None Drug Use: None Adult General Chief Complaint Chief Complaint: COUGH HPI HPI Patient is a 48-year-old male who presents to the emergency department for evaluation. He states he has had a cough productive of some yellow sputum for the past 2-3 days, and He states he became acutely short of breath about 20 minutes prior to arrival, in the setting of some coughing fits. He reports some mild right-sided chest discomfort, worse with coughing only. He denies any dizziness or lightheadedness, has not had any fevers or chills. He has not had any nausea, vomiting. He denies any left or anterior chest discomfort. There are no alleviating or exacerbating factors to his symptoms except that coughing worsens his discomfort. Review of Systems Review of Systems Constitutional: Denies fever or chills [] Eyes: Denies change in visual acuity, redness, or eye pain [] HENT: Denies otalgia or sore throat [] Respiratory: No additional information not addressed in HPI [] Cardiovascular: No additional information not addressed in HPI [] GI: Denies abdominal pain, nausea, vomiting, bloody stools or diarrhea [] : Denies dysuria or hematuria [] Musculoskeletal: Denies back pain or joint pain [] Integument: Denies rash or skin lesions [] Neurologic: Denies headache, focal weakness or sensory changes [] Endocrine: Denies polyuria or polydipsia [] All other systems were reviewed and found to be within normal limits, except as documented in this note. Allergies Allergies Allergies Coded Allergies Type Severity Reaction Last Updated Verified No Known Drug Allergies 06/17/19 No Physical Exam Physical Exam PHYSICAL EXAM: CONSTITUTIONAL: Well developed, well nourished HEAD: normocephalic, atraumatic EENT: PERRL, EOMI. Conjunctivae normal color, sclerae non-icteric; moist mucous membranes. NECK: Supple, non-tender; no meningismus. LUNGS: Lungs CTA, breathing even and unlabored. Normal air movement. In termittent paroxysms of coughing are present. HEART: Regular rate and rhythm, no murmur CHEST: No deformity; there is tenderness to palpation to the right anterior/lateral chest wall, which reproduces the patient's pain. ABDOMEN: The abdomen is soft, and non-tender, no masses or bruits. EXTREM: Normal ROM; no deformity, no calf tenderness. Normal pulses palpable in all extremities. There does appear to be chronic appearing lymphedema bilaterally lower extremities. SKIN: No rash; no diaphoresis NEURO: Alert; normal speech and cognition; CN's grossly intact; strength grossly intact without focal deficit. BACK: No CVA TTP. Current Patient Data Vital Signs Vital Signs Date Time Temp Pulse Resp B/P (MAP) Pulse Ox O2 Delivery O2 Flow Rate FiO2 06/17/19 18:47 98.3 93 17 97 Lab Results Laboratory Tests Test 06/17/19 19:15 06/17/19 19:20 White Blood Count 10.4 x10^3/uL Red Blood Count 5.39 x10^6/uL Hemoglobin 14.5 g/dL Hematocrit 43.3 % Mean Corpuscular Volume 80 fL Mean Corpuscular Hemoglobin 27 pg Mean Corpuscular Hemoglobin Concent 34 g/dL Red Cell Distribution Width 13.7 % Platelet Count 254 x10^3/uL Neutrophils (%) (Auto) 63 % Lymphocytes (%) (Auto) 27 % Monocytes (%) (Auto) 6 % Eosinophils (%) (Auto) 3 % Basophils (%) (Auto) 1 % Neutrophils # (Auto) 6.5 x10^3uL Lymphocytes # (Auto) 2.8 x10^3/uL Monocytes # (Auto) 0.7 x10^3/uL Eosinophils # (Auto) 0.3 x10^3/uL Basophils # (Auto) 0.1 x10^3/uL D-Dimer (Regine) 0.40 mg/L Sodium Level 141 mmol/L Potassium Level 3.7 mmol/L Chloride Level 105 mmol/L Carbon Dioxide Level 26 mmol/L Anion Gap 10 Blood Urea Nitrogen 9 mg/dL Creatinine 1.1 mg/dL Estimated GFR (Cockcroft-Gault) 71.1 BUN/Creatinine Ratio 8 Glucose Level 165 mg/dL Calcium Level 8.7 mg/dL Total Bilirubin 0.4 mg/dL Aspartate Amino Transf (AST/SGOT) 22 U/L Alanine Aminotransferase (ALT/SGPT) 35 U/L Alkaline Phosphatase 103 U/L Troponin I Quantitative < 0.017 ng/mL OO-Onr-P-Type Natriuretic Peptide 41 pg/mL Total Protein 8.1 g/dL Albumin 3.5 g/dL Albumin/Globulin Ratio 0.8 Influenza Type A (Rapid) Negative Influenza Type B (Rapid) Negative Current Medications Medications (Trade) Dose Ordered Sig/Sheldon Route PRN Reason Start Time Stop Time Status Last Admin Dose Admin Sodium Chloride 1,000 ml @ 1,000 mls/hr Q1H IV 06/17/19 18:53 06/17/19 19:52 DC 06/17/19 19:30 Benzonatate (Tessalon Perle) 200 mg 1X ONCE PO 06/17/19 19:00 06/17/19 19:10 DC 06/17/19 19:29 EKG EKG [] Radiology/Procedures Radiology/Procedures PROCEDURE: CHEST PA & LATERAL CHEST PA LATERAL History: Cough. Shortness of breath Comparison: July 30, 2017 Findings: No consolidation or pleural effusion. Normal heart size. Impression: 1. No acute cardiopulmonary process. [] Course & Med Decision Making Course & Med Decision Making Pertinent Labs and Imaging studies reviewed. (See chart for details) []8:40 p.m.: The patient's condition remained stable. His symptoms have significantly improved after administration of an antitussive. I suspect her shortness of breath and discomfort were related to paroxysmal coughing. I discussed importance of close PCP follow-up and outpatient evaluation and return precautions were discussed in detail. Dragon Disclaimer Dragon Disclaimer This electronic medical record was generated, in whole or in part, using a voice recognition dictation system. Departure Departure: Impression: Primary Impression: Paroxysmal cough Additional Impression: Upper respiratory infection Disposition: HOME, SELF-CARE Condition: STABLE Referrals: HERNANDEZ JOHNSON MD (PCP) Patient Instructions: Acute Bronchitis, Cough, Adult, Upper Respiratory Infection, Adult Additional Instructions: Return to medical care for any new or worsening symptoms, development of increasing difficulty breathing, chest pain, fever, or any other new or concerning symptoms. Scripts Benzonatate (TESSALON PERLE) 100 Mg Capsule 200 MG PO TID PRN for COUGH, #20 CAP Prov: VEDA CLARK MD 06/17/19 Problem Qualifiers VEDA CLARK MD Jun 17, 2019 18:56
[2019-06-17] MEDS ORDERED: BENZONATATE 100 MG CAPSULE. PO ONE (19:00)
--- NOTE | 2019-06-17 19:22 | RAD ---
CHEST PA LATERAL History: Cough. Shortness of breath Comparison: July 30, 2017 Findings: No consolidation or pleural effusion. Normal heart size. Impression: 1. No acute cardiopulmonary process. Electronically signed by: Micah Gandhi DO (06/17/2019 7:19 PM) [facility]
[2019-06-17 19:46] LABS: BASO # 0.1 x10^3/uL (0.0-0.2); BASO % 1 % (0-3); EOS # 0.3 x10^3/uL (0.0-0.7); EOS % 3 % (0-3); HEMATOCRIT 43.3 % (39.0-53.0); HEMOGLOBIN 14.5 g/dL (13.0-17.5); LYMPH # 2.8 x10^3/uL (1.0-4.8); LYMPH % 27 % (24-48); MEAN CORPUSCULAR HEMOGLOBIN 27 pg (25-35); MEAN CORPUSCULAR HGB CONC 34 g/dL (31-37); MEAN CORPUSCULAR VOLUME 80 fL (79-100); MONO # 0.7 x10^3/uL (0.0-1.1); MONO % 6 % (0-9); NEUT # 6.5 x10^3uL (1.8-7.7); NEUT % 63 % (31-73); PLATELET COUNT 254 x10^3/uL (140-400); RED BLOOD COUNT 5.39 x10^6/uL (4.30-5.70); RED CELL DISTRIBUTION WIDTH 13.7 % (11.5-14.5); WHITE BLOOD COUNT 10.4 x10^3/uL (4.0-11.0)
[2019-06-17 20:06] LABS: ALBUMIN 3.5 g/dL (3.4-5.0); ALBUMIN/GLOBULIN RATIO 0.8 (1.0-1.7); CALCIUM 8.7 mg/dL (8.5-10.1); CREATININE 1.1 mg/dL (0.7-1.3); GFR 71.1; POTASSIUM 3.7 mmol/L (3.5-5.1); TOTAL BILIRUBIN 0.4 mg/dL (0.2-1.0); TOTAL PROTEIN 8.1 g/dL (6.4-8.2)
[2019-06-17 20:07] LABS: INFLUENZA A PATIENT NEGATIVE (NEGATIVE); INFLUENZA B PATIENT NEGATIVE (NEGATIVE)
[2019-06-17] MEDS ORDERED: BENZ100C PO (20:41)
[2019-06-17 20:46] VITALS: BP 163/72
== END 2019-06-17 20:47 | disposition home or self-care (01) ==
LOC: ER 18:30
DX: J06.9 Acute upper respiratory infection, unspecified (principal); I10 Essential (primary) hypertension; G43.909 Migraine, unspecified, not intractable, without status migrainosus
CPT/HCPCS: 36415; 71046; 80053; 83880; 84484; 85025; 85379; 87804; 99285-25; J7030

== ENCOUNTER 2021-01-28 12:31 | Emergency (ER) | payer BC, OTHER ==
[~2021-01-28] VITALS: Ht 170.2 cm; Wt 185.3 kg
[~2021-01-28 12:31] MED LIST changes: +BENZ100C PO; -LISI1TAB19 PO; +LISI1TAB37 PO
[2021-01-28] MEDS ORDERED: ONDANSETRON PF 4 MG/2 ML VIAL. IVP ONE (13:00)
[2021-01-28] MEDS ORDERED: IV NORMAL SALINE 1,000ML 1,000 ML IV ONE (13:00)
--- NOTE | 2021-01-28 13:00 | PHYS DOC ---
Past History Past Medical History: Hypertension, Migraines, Pancreatitis (AMEYA GARRIOD APRN) Past Surgical History: Cholecystectomy, Other Additional Past Surgical Histo: lap band (AMEYA GARRIDO APRN) Smoking: Non-smoker Alcohol Use: None Drug Use: None (AMEYA GARRIDO APRN) General Adult EDM: Chief Complaint: FEVER HPI: HPI: Patient is a 50-year-old male who presents to the ER today multiple complaints. He is reporting fever, chills/sweats, nausea, low O2 sats at home. Symptom onset was today. Patient reports checking his temperature at home and it was 103 degrees, he took 500 mg of Tylenol prior to arrival. Patient also reports that his oxygen saturations at home was 91 to 92%. Patient is tachycardic in the ER today 120, vital signs stable, oxygen saturation 97% on room air. Patient has a history of hypertension and did not take his medications today because of his nausea. He is unsure of what medications he takes at home. Patient denies cough, shortness of air, chest pain, body aches, vomiting, diarrhea, sick exposures, travel, pain. (AMEYA GARRIDO APRN) Review of Systems: Review of Systems: 14 body systems of the review of systems have been reviewed. See HPI for pertinent positive and negative responses, otherwise all other systems are negative, nonpertinent or noncontributory (AMEYA GARRIDO APRN) Allergies: Allergies: Allergies Coded Allergies Type Severity Reaction Last Updated Verified No Known Drug Allergies 06/17/19 No (AMEYA GARRIDO APRN) Physical Exam: PE: Constitutional: Well developed, well nourished, no acute distress, non-toxic appearance. [] HENT: Normocephalic, atraumatic Eyes: PERRL, conjunctiva normal, no discharge. [] Neck: Normal range of motion, no stridor Cardiovascular:Heart rate tachycardic rhythm, no murmur [] Lungs & Thorax: Bilateral breath sounds clear to auscultation, nonlabored, no hypoxia, no accessory muscle use, no tachypnea [] Abdomen: Bowel sounds normal, soft, no tenderness, no masses, no pulsatile masses. [] Skin: Warm, dry, no erythema, no rash. [] Back: No tenderness, normal range of motion. [] Extremities: No tenderness, no cyanosis, no clubbing, ROM intact, no edema. [] Neurologic: Alert and oriented X 3, normal motor function, normal sensory function, no focal deficits noted. [] Psychologic: Affect normal, judgement normal, mood normal. [] (AMEYA GARRIDO APRN) Current Patient Data: Labs: Laboratory Tests Test 01/28/21 13:08 01/28/21 15:09 White Blood Count 14.7 x10^3/uL Red Blood Count 5.24 x10^6/uL Hemoglobin 14.3 g/dL Hematocrit 42.7 % Mean Corpuscular Volume 81 fL Mean Corpuscular Hemoglobin 27 pg Mean Corpuscular Hemoglobin Concent 34 g/dL Red Cell Distribution Width 13.6 % Platelet Count 199 x10^3/uL Neutrophils (%) (Auto) 86 % Lymphocytes (%) (Auto) 6 % Monocytes (%) (Auto) 7 % Eosinophils (%) (Auto) 0 % Basophils (%) (Auto) 1 % Neutrophils # (Auto) 12.6 x10^3uL Lymphocytes # (Auto) 0.9 x10^3/uL Monocytes # (Auto) 1.0 x10^3/uL Eosinophils # (Auto) 0.0 x10^3/uL Basophils # (Auto) 0.1 x10^3/uL Sodium Level 140 mmol/L Potassium Level 4.1 mmol/L Chloride Level 103 mmol/L Carbon Dioxide Level 26 mmol/L Anion Gap 11 Blood Urea Nitrogen 10 mg/dL Creatinine 1.0 mg/dL Estimated GFR (Cockcroft-Gault) 78.8 BUN/Creatinine Ratio 10 Glucose Level 172 mg/dL Calcium Level 8.7 mg/dL Total Bilirubin 0.5 mg/dL Aspartate Amino Transf (AST/SGOT) 20 U/L Alanine Aminotransferase (ALT/SGPT) 27 U/L Alkaline Phosphatase 98 U/L Total Protein 7.3 g/dL Albumin 3.6 g/dL Albumin/Globulin Ratio 1.0 Urine Collection Type Unknown Urine Color Yellow Urine Clarity Clear Urine pH 8.0 Urine Specific [place] 1.020 Urine Protein Neg Urine Glucose (UA) Neg mg/dL Urine Ketones (Stick) Neg mg/dL Urine Blood Trace Urine Nitrite Neg Urine Bilirubin Neg Urine Urobilinogen Dipstick 0.2 mg/dL Urine Leukocyte Esterase Neg Urine RBC 1-2 /HPF Urine WBC 0 /HPF Urine Squamous Epithelial Cells Few /LPF Urine Bacteria 0 /HPF Urine Mucus Slight /LPF Current Medications Medications (Trade) Dose Ordered Sig/Sheldon Route PRN Reason Start Time Stop Time Status Last Admin Dose Admin Sodium Chloride 1,000 ml @ 1,000 mls/hr 1X ONCE IV 01/28/21 13:00 01/28/21 13:59 DC 01/28/21 13:15 Ondansetron HCl (Zofran) 4 mg 1X ONCE IVP 01/28/21 13:00 01/28/21 13:01 DC 01/28/21 13:15 Acetaminophen (Tylenol) 1,000 mg 1X ONCE PO 01/28/21 13:15 01/28/21 13:16 DC 01/28/21 13:15 Ibuprofen (Motrin) 800 mg 1X ONCE PO 01/28/21 15:15 01/28/21 15:16 DC 01/28/21 15:15 Laboratory Tests Test 01/28/21 13:08 White Blood Count 14.7 x10^3/uL Red Blood Count 5.24 x10^6/uL Hemoglobin 14.3 g/dL Hematocrit 42.7 % Mean Corpuscular Volume 81 fL Mean Corpuscular Hemoglobin 27 pg Mean Corpuscular Hemoglobin Concent 34 g/dL Red Cell Distribution Width 13.6 % Platelet Count 199 x10^3/uL Neutrophils (%) (Auto) 86 % Lymphocytes (%) (Auto) 6 % Monocytes (%) (Auto) 7 % Eosinophils (%) (Auto) 0 % Basophils (%) (Auto) 1 % Neutrophils # (Auto) 12.6 x10^3uL Lymphocytes # (Auto) 0.9 x10^3/uL Monocytes # (Auto) 1.0 x10^3/uL Eosinophils # (Auto) 0.0 x10^3/uL Basophils # (Auto) 0.1 x10^3/uL Sodium Level 140 mmol/L Potassium Level 4.1 mmol/L Chloride Level 103 mmol/L Carbon Dioxide Level 26 mmol/L Anion Gap 11 Blood Urea Nitrogen 10 mg/dL Creatinine 1.0 mg/dL Estimated GFR (Cockcroft-Gault) 78.8 BUN/Creatinine Ratio 10 Glucose Level 172 mg/dL Calcium Level 8.7 mg/dL Total Bilirubin 0.5 mg/dL Aspartate Amino Transf (AST/SGOT) 20 U/L Alanine Aminotransferase (ALT/SGPT) 27 U/L Alkaline Phosphatase 98 U/L Total Protein 7.3 g/dL Albumin 3.6 g/dL Albumin/Globulin Ratio 1.0 Current Medications Medications (Trade) Dose Ordered Sig/Sheldon Route PRN Reason Start Time Stop Time Status Last Admin Dose Admin Sodium Chloride 1,000 ml @ 1,000 mls/hr 1X ONCE IV 01/28/21 13:00 01/28/21 13:59 DC 01/28/21 13:15 Ondansetron HCl (Zofran) 4 mg 1X ONCE IVP 01/28/21 13:00 01/28/21 13:01 DC 01/28/21 13:15 Acetaminophen (Tylenol) 1,000 mg 1X ONCE PO 01/28/21 13:15 01/28/21 13:16 DC 01/28/21 13:15 Vital Signs: Vital Signs Date Time Temp Pulse Resp B/P (MAP) Pulse Ox O2 Delivery O2 Flow Rate FiO2 01/28/21 12:48 99.8 120 18 154/104 97 Room Air (AMEYA AGRRIDO APRN) EKG: EKG: [] (AMEYA GARRIDO APRN) Radiology/Procedures: Radiology/Procedures: PROCEDURE: PORTABLE CHEST 1V EXAM: XR CHEST 1V 01/28/2021 12:57 PM CLINICAL INDICATION: Low oxygen saturation at home COMPARISON: Chest radiograph 06/17/2019 TECHNIQUE: AP view of the chest FINDINGS: The heart and mediastinum are normal. Lungs are well-expanded and clear. No consolidation, pleural effusion, or pneumothorax. Pulmonary vascular ity is normal. The thoracic skeleton is intact. IMPRESSION: Normal chest radiograph. Electronically signed by: Selma Taylor MD (01/28/2021 2:23 PM) [id number] DICTATED AND SIGNED BY: SELMA TAYLOR MD DATE: 01/28/21 1423 CC: TOM JOE DO; AMEYA GARRIDO APRN; TROY JONES ~MTH0 0 (AMEYA GARRIDO APRN) Heart Score: C/O Chest Pain: No Risk Factors: Risk Factors: DM, Current or recent (<one month) smoker, HTN, HLP, family history of CAD, obesity. Risk Scores: Score 0 - 3: 2.5% MACE over next 6 weeks - Discharge Home Score 4 - 6: 20.3% MACE over next 6 weeks - Admit for Clinical Observation Score 7 - 10: 72.7% MACE over next 6 weeks - Early Invasive Strategies (AMEYA GARRIDO APRN) Course & Med Decision Making: Course & Med Decision Making Pertinent Labs and Imaging studies reviewed. (See chart for details) Patient is a 50-year-old male being seen in the ER today for fever, chills/sweats, nausea, low O2 saturations at home. Work-up in the ER consisted of CBC, CMP, chest x-ray, Covid test. Findings in the ER mostly unremarkable, patient did have an elevated WBC but chest x-ray negative. His Covid test is pending at this time and he will be notified of results whenever they become available. Patient was educated to self isolate until the results of this test. Patient advised to push fluids and take Tylenol/ibuprofen for pain or fevers. Upon discharge patient was noted to have a temperature of 103 degrees. Patient was treated with ibuprofen. A UA was performed, that was unremarkable. Patient's temperature was rechecked and it was 99.7, heart rate 103. I discussed with patient all findings and diagnostic testing as well as the need to follow-up with PCP for further evaluation and treatment or return to the ER if any new or worsening symptoms. Strict return precautions were also discussed at length. Patient voiced understanding and agreement with the plan. Patient is hemodynamically stable at the time of disposition. (AMEYA GARRIDO APRN) Dragon Disclaimer: Dragon Disclaimer: This electronic medical record was generated, in whole or in part, using a voice recognition dictation system. (AMEYA GARRIDO APRN) Attending Co-Sign The patient was seen and interviewed as well as examined at the bedside. The chart was reviewed. The case was discussed. Agree with the plan of care. (TOM JOE DO) Departure Departure: Impression: Primary Impression: Fever Qualified Codes: R50.9 - Fever, unspecified Disposition: HOME / SELF CARE / HOMELESS Condition: GOOD Referrals: TROY JONES (PCP) Patient Instructions: Fever, Adult Additional Instructions: You were seen for fever and low o2sats at home. Your physical exam was reassuring. Your chest x-ray was normal. We tested you for COVID-19 but this test does not come back for 1 to 2 days. In the meantime you will need to quarantine yourself at home away from all other individuals, especially those who are elderly or have any other chronic health issues or any one with immunocompromise status. You should return to the ER if you develop worsening cough, shortness of breath, chest pain, or any other new or concerning symptoms. Alternate Tylenol and ibuprofen as needed for your body aches and pain. If your test does come back positive we will need to quarantine yourself for 10 days until symptom free. You should make sure to drink plenty of fluids and get plenty of rest. Continue to monitor your oxygen saturations at home. EMERGENCY DEPARTMENT GENERAL DISCHARGE INSTRUCTIONS Thank you for coming to [facility] (ED) today and trusting us with you care. We trust that you had a positivie experience in our Emergency Department. If you wish to speak to the department management, you may call the director at [phone]. YOUR FOLLOW UP INSTRUCTIONS ARE FOLLOWS: 1. Do you have a private Doctor? If you do not have a private doctor, please ask for a resource list of physicians or clinics that may be able to assist you with follow up care. 2. The Emergency Physician has interpreted your x-rays. The X-Ray specialist will also review them. If there is a change in the findings, you will be notified in 48 hours when at all possible. 3. A lab test or culture has been done, your results will be reviewed and you will be notified if you need a change in treatment. ADDITIONAL INSTRUCTIONS AND INFORMATION: 1. Your care today has been supervised by a physician who is specially trained in emergency care. Many problems require more than one evaluation for a complete diagnosis and treatment. We recommend that you schedule your follow up appointment as recommended to ensure complete treatment of you illness or injury. If you are unable to obtain follow up care and continue to have a problem, or if your condition worsens, we recommend that you return to the ED. 2. We are not able to safely determine your condition over the phone nor are we able to give sound medical advice over the phone. For these safety reasons, if you call for medical advice we will ask you to come to the ED for further evaluation. 3. If you have any questions regarding these discharge instructions please call the ED at [phone]. SAFETY INFORMATION: In the interest of safety, wellness, and injury prevention; we encourage you to wear your sealbelt, if you smoke; quite smoking, and we encourage family to use a protective helmet for bicycling and other sporting events that present an increased risk for head injury. IF YOUR SYMPTOMS WORSEN OR NEW SYMPTOMS DEVELOP, OR YOU HAVE CONCERNS ABOUT YOUR CONDITION; OR IF YOUR CONDITION WORSENS WHILE YOU ARE WAITING FOR YOUR FOLLOW UP APPOINTMEN T; EITHER CONTACT YOUR PRIMARY CARE DOCTOR, THE PHYSICIAN WHOSE NAME AND NUMBER YOU WERE GIVEN, OR RETURN TO THE ED IMMEDIATELY. Scripts Ondansetron Hcl (ZOFRAN) 4 Mg Tablet 4 MG PO TID PRN PRN for NAUSEA for 5 Days, #15 TAB 0 Refills Prov: AMEYA GARRIDO APRN 01/28/21 AMEYA GARRIDO APRN Jan 28, 2021 13:00 TOM JOE DO Jan 29, 2021 06:11
[2021-01-28] MEDS ORDERED: ACETAMINOPHEN 500 MG TABLET PO ONE (13:15)
[2021-01-28 13:27] LABS: BASO # 0.1 x10^3/uL (0.0-0.2); BASO % 1 % (0-3); EOS % 0 % (0-3); HEMATOCRIT 42.7 % (39.0-53.0); HEMOGLOBIN 14.3 g/dL (13.0-17.5); LYMPH # 0.9 x10^3/uL (1.0-4.8); LYMPH % 6 % (24-48); MEAN CORPUSCULAR HEMOGLOBIN 27 pg (25-35); MEAN CORPUSCULAR HGB CONC 34 g/dL (31-37); MEAN CORPUSCULAR VOLUME 81 fL (79-100); MONO % 7 % (0-9); NEUT # 12.6 x10^3uL (1.8-7.7); NEUT % 86 % (31-73); PLATELET COUNT 199 x10^3/uL (140-400); RED BLOOD COUNT 5.24 x10^6/uL (4.30-5.70); RED CELL DISTRIBUTION WIDTH 13.6 % (11.5-14.5); WHITE BLOOD COUNT 14.7 x10^3/uL (4.0-11.0)
[2021-01-28 13:37] LABS: CALCIUM 8.7 mg/dL (8.5-10.1); GFR 78.8; POTASSIUM 4.1 mmol/L (3.5-5.1)
[2021-01-28 13:43] LABS: ALBUMIN 3.6 g/dL (3.4-5.0); TOTAL BILIRUBIN 0.5 mg/dL (0.2-1.0); TOTAL PROTEIN 7.3 g/dL (6.4-8.2)
--- NOTE | 2021-01-28 14:26 | RAD ---
EXAM: XR CHEST 1V 01/28/2021 12:57 PM CLINICAL INDICATION: Low oxygen saturation at home COMPARISON: Chest radiograph 06/17/2019 TECHNIQUE: AP view of the chest FINDINGS: The heart and mediastinum are normal. Lungs are well-expanded and clear. No consolidatio n, pleural effusion, or pneumothorax. Pulmonary vascularity is normal. The thoracic skeleton is int act. IMPRESSION: Normal chest radiograph. Electronically signed by: Selma Taylor MD (01/28/2021 2:23 PM) [id number]
[2021-01-28 15:15] VITALS: BP 154/86
[2021-01-28] MEDS ORDERED: IBUPROFEN 400 MG TABLET. PO ONE (15:15)
[2021-01-28 15:40] LABS: BACTERIA,URINE 0 /HPF (0-FEW); BILIRUBIN,URINE NEG (NEG); CLARITY,URINE CLEAR; COLOR,URINE YELLOW; GLUCOSE,URINE NEG (NEG); NITRITE,URINE NEG (NEG); SQUAMOUS EPITHELIAL CELL,UR FEW /LPF; UROBILINOGEN,URINE 0.2 mg/dL (0.2 mg/dL); WBC,URINE 0 /HPF (0-4)
[2021-01-28] MEDS ORDERED: ONDA4TAB7 PO (15:57)
== END 2021-01-28 15:57 | disposition home or self-care (01) ==
LOC: ER 12:31
DX: R50.9 Fever, unspecified (principal); R11.0 Nausea; R00.0 Tachycardia, unspecified; I10 Essential (primary) hypertension; G43.909 Migraine, unspecified, not intractable, without status migrainosus; Z20.822 Contact with and (suspected) exposure to COVID-19
CPT/HCPCS: 71045; 80053; 81001; 85025; 96361; 96374; 99284; C9803; J2405; J7030; U0003

== ENCOUNTER 2021-01-31 03:42 | Inpatient (IN) | payer BC, OTHER ==
[~2021-01-31] VITALS: Ht 170.2 cm; Wt 183.7 kg
[~2021-01-31 03:42] MED LIST changes: +ONDA4TAB7 PO
--- NOTE | 2021-01-31 04:21 | PHYS DOC ---
Past History Past Medical History: GERD, Hypertension, Migraines, Pancreatitis Past Surgical History: Cholecystectomy, Other Additional Past Surgical Histo: lap band Smoking: Non-smoker Alcohol Use: None Drug Use: None General Adult EDM: Chief Complaint: LOWER EXT PAIN HPI: HPI: 50-year-old male presents with report of left posterior calf and thigh pain and swelling which has been ongoing for the past several days. Patient denies known trauma. Reports had recently been evaluated here in the emergency department with concern for possible COVID-19. Patient at that time was experiencing chills and fevers along with shortness of breath. Per [facility] review Covid t esting was negative. Patient reports fever and chills have since resolved. Patient reports noting the pain starting in the back of his left thigh and now is in the back of his left calf as well. Patient reports sensation that area is "tight ". Denies history of DVT or PE. Denies chest pain. Patient does report some abdominal discomfort with associated nausea which he attributes to taking ibuprofen and/or Tylenol for fever. Review of Systems: Review of Systems: Constitutional: Recent fever and chills which have since resolved Eyes: Denies redness or eye pain HENT: Denies nasal congestion or sore throat Respiratory: Denies cough or shortness of breath Cardiovascular: Denies chest pain or palpitations GI: Denies abdominal pain; reports nausea : Denies dysuria or hematuria Musculoskeletal: Denies back pain; left leg pain and swelling Integument: Denies rash; erythema to the back of left leg Neurologic: Denies headache, focal weakness or sensory changes Complete systems were reviewed and found to be within normal limits, except as documented in this note. Current Medications: Current Meds: Current Medications Medications (Trade) Dose Ordered Sig/Sheldon Start Time Stop Time Status Last Admin Dose Admin Clindamycin Phosphate 50 ml @ 100 mls/hr 1X ONCE 01/31/21 04:15 01/31/21 04:44 UNV Sodium Chloride 1,000 ml @ 1,000 mls/hr 1X ONCE 01/31/21 04:15 01/31/21 05:14 UNV Allergies: Allergies: Allergies Coded Allergies Type Severity Reaction Last Updated Verified No Known Drug Allergies 06/17/19 No Physical Exam: PE: Constitutional: Well developed, morbidly obese, no acute distress, non-toxic appearance HENT: Normocephalic, atraumatic Eyes: Conjunctiva normal, no discharge Neck: Normal range of motion, supple Lungs & Thorax: No respiratory distress, equal chest rise and fall Skin: Warm, dry, erythema and warmth to posterior left lower extremity consistent for cellulitis Extremities: Left posterior calf and thigh erythema and increased warmth concerning for cellulitis, ROM intact Neurologic: Alert and oriented X 3, normal motor function, normal sensory function, no focal deficits noted Psychologic: Affect normal, judgment normal Current Patient Data: Vital Signs: Vital Signs Date Time Temp Pulse Resp B/P (MAP) Pulse Ox O2 Delivery O2 Flow Rate FiO2 01/31/21 03:42 98.4 134 20 142/70 97 Room Air EKG: EKG: [] Radiology/Procedures: Radiology/Procedures: [] Heart Score: C/O Chest Pain: N/A Course & Med Decision Making: Course & Med Decision Making Pertinent Lab studies reviewed. (See chart for details) Patient presents with HPI and physical exam consistent for cellulitis. Patient reports borderline diabetes. Patient also reports some associated nausea and abdominal discomfort. Patient recently evaluated for COVID-19 and found to be negative per [facility] review. Patient with concern for nausea and inability to take pain medication due to his "upset stomach ". Decision therefore to admit patient. IV clindamycin initiated. Labs obtained and posted to chart. SIRS criteria met with leukocytosis, bandemia, and tachycardia. Lactic acid elevated. Patient meeting severe sepsis criteria. Hypomagnesemia and hyperglycemia noted. Pain/nausea addressed. Patient requiring admission for further evaluation and treatment. Discussed with Dr. Desai (hospitalist) who is in agreement with admission. Discussed findings and plan with patient and family, who acknowledges understanding and agreement. Stanford Disclaimer: Stanford Disclaimer: This electronic medical record was generated, in whole or in part, using a voice recognition dictation system. Departure Departure: Impression: Primary Impression: Severe sepsis Additional Impressions: Cellulitis Qualified Codes: L03.116 - Cellulitis of left lower limb Hyperglycemia Hypomagnesemia Disposition: ADMITTED INPATIENT Admitting Physician: Papi Desai Condition: STABLE Referrals: TROY JONES (PCP) Sepsis Assessment Date and Time of Assessment Date: Jan 31, 2021 Time: 05:30 Fluid Challenge: Is the fluid challenge complet: No IBW Target Volume Used: Yes BMI > 30: Yes Vital Signs Vital Signs Vital Signs Date Time Temp Pulse Resp B/P (MAP) Pulse Ox O2 Delivery O2 Flow Rate FiO2 01/31/21 03:42 98.4 134 20 142/70 97 Room Air Temperature Source: Oral Respirations Respiratory Effort: Normal, Non-Labored Respiratory Pattern: Normal Cardiovascular Pulse Rhythm: Regular Heart: Nml rate, reg. rhythm Lung Sounds Breath Sounds: Diminished Capillary Refill Capillary Refill: Rt Hand < 3 seconds Peripheral Pulse Pulse Location: Radial Pulse Strength: Normal (2+) Pulse Assessment Method: Palpation Integumentary Skin: Warm, Dry Skin Moisture: Dry Skin Turgor: Normal Skin Color: warm, dry, erythema (LLE) Fingernail Color: WNL Critical Care Time Critical care time was 30 minutes which includes time at bedside, spent in discussion of patient's care with specialists and/or family members, with interpretation of laboratory and/or radiological studies and is exclusive of procedures. SERA MURPHY DO Jan 31, 2021 04:21
[2021-01-31] MEDS ORDERED: IV NORMAL SALINE 1,000ML 1,000 ML IV ONE ×2 (04:30→06:00)
[2021-01-31] MEDS ORDERED: ONDANSETRON PF 4 MG/2 ML VIAL. IVP PRN (04:30)
[2021-01-31] MEDS ORDERED: CLINDAMYCIN 900MG PREMIX 50 ML IV ONE (04:30)
[2021-01-31] MEDS ORDERED: ONDANSETRON PF 4 MG/2 ML VIAL. IVP ONE (04:30)
[2021-01-31] MEDS ORDERED: KETOROLAC 15 MG/ML VIAL. IVP ONE (04:30)
[2021-01-31 04:39] LABS: BASO % 0 % (0-3); EOS % 0 % (0-3); HEMATOCRIT 40.6 % (39.0-53.0); HEMOGLOBIN 13.5 g/dL (13.0-17.5); LYMPH # 0.9 x10^3/uL (1.0-4.8); LYMPH % 5 % (24-48); MEAN CORPUSCULAR HEMOGLOBIN 27 pg (25-35); MEAN CORPUSCULAR HGB CONC 33 g/dL (31-37); MEAN CORPUSCULAR VOLUME 82 fL (79-100); MONO # 1.2 x10^3/uL (0.0-1.1); MONO % 7 % (0-9); NEUT # 16.3 x10^3uL (1.8-7.7); NEUT % 89 % (31-73); PLATELET COUNT 164 x10^3/uL (140-400); RED BLOOD COUNT 4.94 x10^6/uL (4.30-5.70); RED CELL DISTRIBUTION WIDTH 13.9 % (11.5-14.5); WHITE BLOOD COUNT 18.4 x10^3/uL (4.0-11.0)
[2021-01-31 04:44] LABS: CALCIUM 8.1 mg/dL (8.5-10.1); CREATININE 1.2 mg/dL (0.7-1.3); GFR 63.8; POTASSIUM 3.7 mmol/L (3.5-5.1)
[2021-01-31 04:49] LABS: ALBUMIN 2.8 g/dL (3.4-5.0); ALBUMIN/GLOBULIN RATIO 0.6 (1.0-1.7); MAGNESIUM 1.7 mg/dL (1.8-2.4); TOTAL BILIRUBIN 0.8 mg/dL (0.2-1.0); TOTAL PROTEIN 7.3 g/dL (6.4-8.2)
[2021-01-31 05:09] LABS: % BANDS 10 % (0-9); % LYMPHS 8 % (24-48); % MONOS 3 % (0-10); % SEGS 79 % (35-66); PLT ESTIMATE ADEQUATE (ADEQUATE)
[2021-01-31] MEDS: ACETAMINOPHEN 325 MG TABLET PO PRN ×3 (05:24→21:29)
[2021-01-31] MEDS ORDERED: DEXTROSE 50% 25 GM / 50ML DISP.SYRIN. IV PRN (05:45)
[2021-01-31] MEDS: VANCOMYCIN PER PHARMACY MC PRN ×2 (05:46→10:52)
[2021-01-31] MEDS ORDERED: VANCOMYCIN 2 GM in IV NORMAL SALINE 500ML 500 ML IV ONE ×2 (06:00→08:00)
[2021-01-31] MEDS ORDERED: MAGNESIUM SULFATE 2GM 50 ML IV ONE (06:00)
[2021-01-31] MEDS ORDERED: LEXAPRO5 MG PO (06:11)
[2021-01-31] MEDS ORDERED: LOSA100T14 PO (06:11)
[2021-01-31 06:15] VITALS: BP 115/69
--- NOTE | 2021-01-31 06:23 | NUR ---
The patient, LOKESH ALVAREZ, 50 y/o, M admitted by LEXX VU MD, was given written information regarding hospital policies, unit procedures and contact persons. Valuables were checked and VITALS OBTAINED. PT IS A&OX4 ON ROOOM AIR ABLE TO AMBULATE TO TOILET. PT HAS CELLULITIS ON LLE. PT IS CURRENTLY RESTING IN BED. WILL CONTINUE TO MONITOR.
[2021-01-31] MEDS ORDERED: INSULIN LISPRO 300 UNITS/3 ML VIAL. SQ SCH (08:00)
--- NOTE | 2021-01-31 08:00 | NUR ---
elevator starter called regarding wound assessment. Pt has cellulitis that is red and edematous up to thigh. RN stated there was only a couple superficial open areas to posterior calf. Advised RN to cover areas with adaptic contact layer, ABDs and kerlix and change daily and PRN for drainage. Also may apply size G medigrip and elevate legs to help with swelling. RN verbalized understanding of instruction since WC team was already there this morning. WC will continue to follow.
--- NOTE | 2021-01-31 10:53 | NUR ---
Pharmacy Vancomycin Dosing Note S:Consulted to monitor and dose vancomycin started 01/31/21. O:LOKESH ALVAREZ is a 50 year old M with Cellulitis, . Height: 5 feet, 7 inches Weight: 184.3 kg [place] Body Weight: 66.10 Adjusted Body Weight: 113.26 Dosing Weight: Actual Other Antibiotics: LABS: Last BUN: 11 Last Creatinine: 1.2 Creatinine Clearance: >100 Last WBC: 18.4 Last Procalcitonin: Tmax (past 24 hours): 98.4 Microbiology: I/O: Drug Levels: Last Trough level: on at Last dose given 01/31/21 at 0900 Vancomycin Dosing: Loading Dose: 2000 mg x1 Dosing Weight: Actual Target Trough: 10-20 A: Based on: P: 1. Begin Vancomycin 2000 mg IV q12h 2. Follow up level on at 02/01/21 @ 2029 3. Pharmacy will continue to monitor, follow and adjust therapy as needed. OLEG SERRANO [facility], 01/31/21 0930
[2021-01-31 11:38] VITALS: BP 120/65
--- NOTE | 2021-01-31 11:52 | HP ---
ATTENDING PHYSICIAN: Dr. Nelson. CHIEF COMPLAINT: Leg swelling. HISTORY OF PRESENT ILLNESS: The patient is a 50-year-old gentleman admitted through the ED with increasing pain, swelling, erythema of the left thigh for the last 3 days. He is diabetic. Sugars were greater than 350. He is not on insulin at this time. Unfortunately, the patient has morbid obesity with a weight in excess of 420 pounds. Thirteen years ago, he had gastric bypass surgery, but since that time, he has not had followup and gained back most of the weight. His left leg is angry red, swollen, erythematous and consistent with a Staphylococcus infection. He was started on vancomycin. He also was admitted with uncontrolled diabetes mellitus. PAST MEDICAL HISTORY: Significant for essential hypertension, gastroesophageal reflux disease, migraine headaches, chronic pancreatitis, previous cholecystectomy. SOCIAL HISTORY: He is a nonsmoker, nondrinker. ALLERGIES: He has no recorded drug allergies. CURRENT MEDICATIONS: Reviewed. He was on scheduled Lexapro and losartan. He was not on any oral hypoglycemics. FAMILY HISTORY: Both parents alive at age 74 and 75 respectively. Father has diabetes mellitus. 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 He has 4 children that are grown. REVIEW OF SYSTEMS: Significant for the weight gain, previous gastric bypass sleeve. No recent fevers or travel. All other systems reviewed and turned to be negative. PHYSICAL EXAMINATION: GENERAL: When I saw him, this is a pleasant middle-aged gentleman. INITIAL VITAL SIGNS: Showed a blood pressure of 142/70 mmHg. He was afebrile. Oxygen saturations were 97% on room air. HEENT: Head is without trauma. Pupils are reactive. Sclerae nonicteric. The oropharynx is clear. NECK: Supple. No stridor. LUNGS: Clear. CARDIOVASCULAR: Showed distant heart tones. No gallops. ABDOMEN: Markedly obese, protuberant. I cannot assess any organomegaly. EXTREMITIES: Show 3+ pitting edema. There is significant redness, erythema of the left leg, mostly involving the posterior calf extending up to his thigh. NEUROLOGIC: Function focally intact. Speech is fluent. PERTINENT LABORATORY STUDIES: Hemoglobin is 13.5 g/dL, white count 18,400. Electrolytes within normal range. Creatinine 1.2 mg/dL. Nonfasting blood sugar 350 mg/dL. Transaminases are normal. ASSESSMENT: 1. A 50-year-old gentleman with cellulitis of the left lower extremity, most likely Staphylococcus infection. 2. Poorly controlled diabetes mellitus. 3. Essential hypertension. 4. Morbid obesity with previous surgery, he has regained most of the weight. PLAN: 1. Admit to the inpatient unit. 2. Vancomycin intravenously has been ordered and will be continued. 3. I have scheduled him on regular insulin as well as Lantus 4 times a day. 4. Diabetic diet as tolerated. 5. Follow up CBCs. MAE DR: Laurne TID: [id number] CC: TROY JONES
[2021-01-31] MEDS: INSULIN LISPRO 300 UNITS/3 ML VIAL. SQ SCH ×2 (11:57→16:30)
--- NOTE | 2021-01-31 12:21 | NUR ---
Nursing note Patient up ad leyda in room. Patient receiving intravenous antibiotics. Patient accuchecks have been elevated today, adjusdments to insulin made per . Patient otherwise stable and pleasant. Will continue to monitor.
[2021-01-31 15:04] VITALS: BP 153/56
[2021-01-31 16:05] VITALS: BP 105/54
[2021-01-31] MEDS: VANCOMYCIN 2 GM in IV NORMAL SALINE 500ML 500 ML IV SCH (20:39)
[2021-01-31] MEDS ORDERED: INSULIN GLARGINE SYRINGE. SQ SCH (21:00)
[2021-01-31 21:13] VITALS: BP 135/81
[2021-01-31 23:12] VITALS: BP 138/76
[2021-02-01 03:00] VITALS: BP 129/65
[2021-02-01] MEDS: ACETAMINOPHEN 325 MG TABLET PO PRN (03:39)
[2021-02-01 06:15] VITALS: BP 144/81
--- NOTE | 2021-02-01 07:23 | NUR ---
Wound/Ostomy Care Wound Type/Assessment: 2 open blisters to left posterior calf from swelling. Cleansed, pictured, measured and redressed wounds. Treatment Recommendations/Plan: Cleanse wound, apply skin protectant, cover with contact layer and foam dressing. Change every 3 days and PRN. Education provided: WC POC and PU prevention, pt verbalized understanding of teaching, elevate leg as much as possible and wear compression stocking Offloading surface/device: na Recommended Referrals/Tests: na Discharge Recommendations for dressings: see above, may follow up in [facility] if having difficulty healing
[2021-02-01] MEDS: VANCOMYCIN 2 GM in IV NORMAL SALINE 500ML 500 ML IV SCH ×2 (08:22→22:01)
[2021-02-01] MEDS: INSULIN LISPRO 300 UNITS/3 ML VIAL. SQ SCH ×3 (08:29→16:30)
[2021-02-01] MEDS ORDERED: FUROSEMIDE 100 MG/10 ML VIAL IVP ONE (11:00)
[2021-02-01 11:10] VITALS: BP 169/93
[2021-02-01 17:48] VITALS: BP 135/69
--- NOTE | 2021-02-01 18:20 | NUR ---
Nursing note Pt has been calm and cooperative during this shift for this nurse.
--- NOTE | 2021-02-01 20:27 | PN ---
DATE: 02/01/2021 ATTENDING PHYSICIAN: Dr. Nelson. SUBJECTIVE: Feeling better. He is more alert. No new complaints. OBJECTIVE FINDINGS: VITAL SIGNS: Blood pressure is 144/81, T-max is 102.7 degrees Fahrenheit. He is not symptomatic. Oxygen saturation 96% on room air. HEENT: Head is without trauma. Pupils are reactive. Sclerae nonicteric. Oropharynx is clear. NECK: Supple. No bruits. LUNGS: Clear. CARDIOVASCULAR: Regular heart tones. ABDOMEN: Obese. No guarding. EXTREMITIES: Show redness and erythema subsiding. It is not as angry. Wound team saw the patient. Swelling is still 2+. SKIN: Warm and dry. LABORATORY DATA: Last blood sugars were 210, 140, 162 and 183 respectively on his scheduled insulin. ASSESSMENT: 1. A 50-year-old gentleman with poorly controlled diabetes. 2. Cellulitis of the lower extremity, left leg, most likely Staphylococcus infection. 3. Morbid obesity. 4. Essential hypertension. PLAN: 1. Continue vancomycin ordered, it is effective. 2. I will tweak his insulin schedule slightly, we will go up to 22 units of regular before each meal and 20 units of Lantus at bedtime. 3. Intermittent Lasix 1 dose in order to help with swelling. I encourage him to avoid excess oral intake of fluids. 4. We will reassess him tomorrow. Tentative discharge plans at that time. MAE DR: Lauren TID: [id number]
[2021-02-01] MEDS ORDERED: ACETAMINOPHEN 500 MG TABLET PO PRN (20:30)
[2021-02-01] MEDS ORDERED: INSULIN GLARGINE SYRINGE. SQ SCH (21:00)
[2021-02-01 21:12] LABS: VANC TR 11.8 mcg/mL (10.0-20.0)
[2021-02-01] MEDS: INSULIN GLARGINE SYRINGE. SQ SCH (22:44)
[2021-02-02 05:57] VITALS: BP 150/72
[2021-02-02] MEDS: INSULIN LISPRO 300 UNITS/3 ML VIAL. SQ SCH ×3 (08:10→17:36)
[2021-02-02] MEDS: VANCOMYCIN 2 GM in IV NORMAL SALINE 500ML 500 ML IV SCH ×2 (08:12→20:55)
[2021-02-02] MEDS ORDERED: FUROSEMIDE 40 MG TABLET PO ONE (09:45)
[2021-02-02 10:47] VITALS: BP 144/81
[2021-02-02] MEDS: VANCOMYCIN PER PHARMACY MC PRN (14:46)
--- NOTE | 2021-02-02 14:47 | NUR ---
Pharmacy Vancomycin Dosing Note S:Consulted to monitor and dose vancomycin started 01/31/21. O:LOKESH ALVAREZ is a 50 year old M with cellulitis Height: 5 feet, 7 inches Weight: 184.3 kg [place] Body Weight: 66.10 Adjusted Body Weight: 113.26 Dosing Weight: Actual Other Antibiotics: None LABS: Last BUN: 11 Last Creatinine: 1.2 Creatinine Clearance: >100 Last WBC: 18.4 Tmax (past 24 hours): 98.4 Drug Levels: Last Trough level: 11.8 on 02/01/21 at 2030 Last dose given 01/31/21 at 0900 Vancomycin Dosing: Loading Dose: 2000 mg x1 Dosing Weight: Actual Target Trough: 10-20 A: Based on: Therapeutic trough of 11.8, will maintain current dose and recheck trough on 02/05. P: 1. Continue Vancomycin 2000 mg IV q12h 2. Follow up Trough level on 02/05/21 at 2030 3. Pharmacy will continue to monitor, follow and adjust therapy as needed. BRANDAN SELLERS, 02/02/21 [id number]
--- NOTE | 2021-02-02 14:54 | NUR ---
Nursing Shift note Pt has been calm and cooperative throughout this shift and does note complain of pain.
[2021-02-02 14:56] VITALS: BP 131/79
--- NOTE | 2021-02-02 19:45 | PN ---
DATE: 02/02/2021 ATTENDING PHYSICIAN: Dr. Nelson. SUBJECTIVE: Feeling better. Discomfort in the leg is improved. OBJECTIVE FINDINGS: VITAL SIGNS: Temperature 99.2 degrees Fahrenheit, BP 150/72, pulse is regular and his oxygen saturation 98% on room air. HEENT: Head is without trauma. Pupils are reactive. Sclerae nonicteric. Oropharynx clear. NECK: Supple. LUNGS: Clear. CARDIOVASCULAR: Regular heart tones. ABDOMEN: Obese, protuberant. I cannot palpate organomegaly. Bowel sounds are normoactive. EXTREMITIES: Showed diminished swelling of the left leg. There is still redness and erythema along the posterior calf and in the medial portion of his thigh, it is less pronounced and less angry. SKIN: Warm and dry. No open sores. LABORATORY DATA: Recent blood work, his last four blood sugars are 168, 100, 153, 147 mg/dL respectively. ASSESSMENT: 1. A 50-year-old gentleman with poorly controlled diabetes, stable blood sugars now. 2. Cellulitis of the left leg, most likely Staphylococcus infection. 3. Morbid obesity. 4. Essential hypertension. PLAN: 1. Continue another day of IV vancomycin. 2. Insulin regimen as scheduled. 3. Intermittent Lasix to help with swelling. SACHA DR: TYLER/[place] TID: [id number] CC: TROY JONES
[2021-02-02 19:54] VITALS: BP 146/76
[2021-02-02] MEDS: INSULIN GLARGINE SYRINGE. SQ SCH (20:54)
[2021-02-02] MEDS: LACTOBACILLUS RHAMNOSUS GG 1 CAPSULE. PO SCH (20:55)
[2021-02-02 23:32] VITALS: BP 138/83
--- NOTE | 2021-02-03 05:24 | NUR ---
Nursing note: Pt c/o pain in LLE when ambulating, denied need for pain meds. Vanc given per orders.
[2021-02-03 07:23] VITALS: BP 156/70
[2021-02-03] MEDS: INSULIN LISPRO 300 UNITS/3 ML VIAL. SQ SCH (07:30)
[2021-02-03] MEDS: LACTOBACILLUS RHAMNOSUS GG 1 CAPSULE. PO SCH (08:44)
[2021-02-03] MEDS: VANCOMYCIN 2 GM in IV NORMAL SALINE 500ML 500 ML IV SCH (08:44)
--- NOTE | 2021-02-03 12:14 | NUR ---
DISCHARGE NOTE Pt discharged by Dr. Nelson today. Pt verbalized understanding of discharge and prescriptions. All questions addressed. VSS, GCS 15 and ambulatory at discharge. CC, RN
--- NOTE | 2021-02-03 18:28 | DS ---
ATTENDING PHYSICIAN: Dr. Nelson. FINAL DISCHARGE DIAGNOSES: 1. Cellulitis, left leg. 2. Uncontrolled diabetes. 3. Morbid obesity. 4. Essential hypertension. HISTORY AND PHYSICAL: The patient is a 50-year-old gentleman with morbid obesity. He weighs 183 kg, which correlates about 420 pounds. He is diabetic. This is a new onset. Sugars were high. He had poorly controlled infection, cellulitis involving the entire right leg posterior in the calf extending up to his thighs and medial portion of his groin. PHYSICAL EXAMINATION: Please see the dictated note. PERTINENT LABORATORY AND X-RAY STUDIES: Hemoglobin on admission was 13.5 g/dL, white count is 18,400. This will be followed up as an outpatient. Chemistry panel; admission blood sugar was 350. Cardiac enzymes were negative. Creatinine 1.2 mg percent. Subsequent blood work showed blood sugar is well controlled. Lasts 4 sugars prior to discharge was 96, 134, 141 and 136 mg/dL. COURSE IN HOSPITAL: The patient was treated with 4 full days of intravenous vancomycin with marked improvement. Intermittent Lasix was added. We brought the sugars down and treated him with scheduled Lantus and regular. On the fourth hospital day, he was discharged home with a combination of Bactrim-DS 1 b.i.d. and doxycycline 100 mg b.i.d. for another week. Hopefully, this will cover the anticipated MRSA infection. In addition, I recommended Lantus 22 units at bedtime and regular insulin 22 units t.i.d. before each meal. I wrote a script for NovoPen. He understands how to administer it. He has a followup visit with Dr. Jones this coming Friday. Hopefully, this discharge summary will be on his file in her office at that time. The patient was then discharged from our hospital in stable condition with explicit drug and followup care. Total discharge time spent, 39 minutes. TYLER/NAYELY/TREVER DR: TYLER/[place] TID: [id number] CC: TROY JONES
== END 2021-02-03 12:12 | disposition home or self-care (01) | DRG 603 ==
LOC: ER 03:42 → 1 SOUTH 04:40
PROVIDERS: ADMIT Internal Medicine; ATTEND Internal Medicine
DX: L03.116 Cellulitis of left lower limb (principal); K86.1 Other chronic pancreatitis; Z68.44 Body mass index [BMI] 60.0-69.9, adult; E11.65 Type 2 diabetes mellitus with hyperglycemia; E66.01 Morbid (severe) obesity due to excess calories; E83.42 Hypomagnesemia; I10 Essential (primary) hypertension; Z20.822 Contact with and (suspected) exposure to COVID-19; Z83.3 Family history of diabetes mellitus; Z90.49 Acquired absence of other specified parts of digestive tract; Z98.84 Bariatric surgery status; G43.909 Migraine, unspecified, not intractable, without status migrainosus; K21.9 Gastro-esophageal reflux disease without esophagitis
CPT/HCPCS: 36415; 80053; 80202; 82947; 83605; 83735; 85007; 85025; 87040; J1815; J1885; J2405; J3370; J3475; J3490; J7040; 99291-25; J7030